=== PATIENT | female | born 1970 | race Hispanic/Latino ===

== ENCOUNTER 2023-12-22 14:37 | Inpatient (IN) | payer OTHER, SELFPAY ==
[2023-12-22] VITALS (13 sets, daily range): BP systolic 141–209; BP diastolic 68–113; BMI 22.3
--- NOTE | 2023-12-22 11:06 | ED.GENMED ---
History of Present Illness
<Anatsasiia Chavez PA-C - Last Filed: 12/22/23 16:07>
General
Chief Complaint: Blood Pressure Problem
Source: patient
Exam Limitations: none
Time Seen by Provider: 12/22/23 11:04
Nursing documentation reviewed up to this point in time: agreed with
History of Present Illness
History of Present Illness:
53-year-old female with past medical history of hypertension, chronic renal disease on dialysis, type 2 diabetes on insulin, presents to the emergency department today with concerns of high blood pressure, headache, and chest pain. Patient states
that she has a history of uncontrolled blood pressure and she states that she checks her blood pressure daily. Patient reports that her baseline blood pressure usually runs in the 150s to 160s systolically but noted that the past 3 days, her blood
pressure has been in the 200s systolically. Patient takes hydralazine, losartan, and nifedipine daily for her blood pressure. Of note, she was on labetalol previously instead of nifedipine however this was mold insert changer a year ago and she is not
sure why. Patient states that last night, she started to have chest pain and headache. Patient notes that her chest pain is substernal and describes it as pressure and feels like 'there is a rock in my chest' and has nausea and shortness of breath
associated with this as well as mild cough. Patient denies any trauma the chest wall. She denies radiation of the pain to the back. She denies any paresthesias. In terms of her headache,patient notes that her headache is frontal and denies any
changes to her vision. She receives dialysis Friday, Friday and Friday and notes that she did not go yet today for dialysis. Her toolroom machinist is Dr. Viera with [facility] and her gang rider is Dr. Palmer with [facility] cardiology.
Past History
<Anastasiia Chavez PA-C - Last Filed: 12/22/23 16:07>
Past History
ED Past Medical History: HTN, Hypercholesterolemia, IDDM, Renal failure (Chronic kidney disease stage III/IV.) and Other ( Frequent UTI's)
ED Past Surgical History: Other (History of right kidney transplant, Jaw tumor removed benign)
Social History
Tobacco: Non-smoker
Alcohol: None
Drug: None
Personal:
Living: with family
Employment: Not employed
Family History
Family History: Other (Noncontributory)
Review of Systems
<Anastasiia Chavez PA-C - Last Filed: 12/22/23 16:07>
Review of Systems
All Other Systems: ROS reviewed and negative except as documented in HPI and ROS
Phy Exam
<Anastasiia Chavez PA-C - Last Filed: 12/22/23 16:07>
Physical Exam
Physical Exam:
General: Patient is well appearing and in no acute distress; non-toxic
Skin: Warm and dry, no rashes or lesions
Head: Normocephalic, atraumatic
Eyes: Sclera non-icteric. EOMs intact. PERRLA.
Cardiac: Regular rate and rhythm, no murmurs
Peripheral Vascular: No lower extremity swelling or edema
Pulm: Normal respiratory effort, no wheezes, crackles, rhonchi
Abdomen: No abdominal tenderness to palpation
Neuro: CN II-XII intact, no focal neurologic deficits.
Psychiatric: Appropriate mood and affect.
Course
<Anastasiia Chavez PA-C - Last Filed: 12/22/23 16:07>
Orders/Labs/Results
Orders:
Orders
12/22/23 10:17
Electrocardiogram (*1) Urgent
Reason for Study: Hypertension, Benign
EKG- Treatment ONCE
12/22/23 11:14
Complete Blood Count/With Diff Urgent
Comprehensive Metabolic Panel Urgent
Troponin I Urgent
12/22/23 11:19
PTT Urgent
Prothrombin Time Urgent
Comment: ADD ON
12/22/23 11:40
CT Head W/o Iv Contrast Urgent
Comment:
Reason For Exam: headache
CR Chest - 2 Views Urgent
Comment:
Reason For Exam: chest pain, shortness of breath
12/22/23 11:44
Add On- LAB Urgent
Tests Added?: PT
Labetalol HCl [Trandate] 10 mg IV NOW STA
12/22/23 12:05
COVID-19 Antigen Urgent
Source: Nasal Swab
12/22/23 12:24
Ondansetron Injectable [Zofran] 4 mg IV NOW STA
12/22/23 13:12
Labetalol HCl [Trandate] 10 mg IV NOW STA
12/22/23 13:21
Sodium Zirconium Cyclosilicate [Lokelma] 5 gram PO NOW STA
12/22/23 13:40
Electrocardiogram (*1) Urgent
Reason for Study: Chest Pain
12/22/23 13:44
Troponin I Urgent
12/22/23 14:19
Admit/Transfer Patient As Directed
Co-Sign Provider:
Level of Care: Inpatient admission
Assign to:: Telemetry
Physician / Group: Lydia
Diagnosis: Uncontrolled Hypertension / Volume Overload
Reason for Telemetry: Arrhythmia
Date to Stop Telemetry: 12/25/23
Time to Stop Telemetry: 11:00
Reason for Hospitalization: BP management, volume management
Expected length of stay greater than two midnights?: Yes
ELOS- Estimated Length of Stay in days: 3
I certify the patient meets the requirements for IP care: Yes
PRN Pain Medication Management As Directed
May give lesser potent ordered pain med per pt: Yes
preference::
Protocol:: Medication orders for pain may be administered in a
manner that supports deferring to patient preference
when the pt is:
- Requesting an ordered lesser potent pain medication.
Least to most potent pain medications are defined
as: acetaminophen < NSAID < tramadol < opioids
(morphine, oxycodone, hydromorphone).
- Requesting a lesser dose of the same medication IF
ORDERED.
- Requesting a less intrusive route of administration
if both routes are prescribed by the provider (PO <
IV).
12/22/23 14:25
Code Status As Directed
Resuscitation Status: Full Code
12/22/23 20:00
Troponin I Routine
12/25/23 11:00
DC Protocol for Telemetry ONCE
Abnormal Lab Results
12/22/23 12/22/23
11:14 11:19
MCH 26.0 L pg
(27.0-31.0)
MCHC 32.1 L g/dL
(33.0-37.0)
RDW 16.4 H %
(11.5-14.5)
Absolute Lymphs (auto) 1.0 L 10^3/uL
(1.2-3.4)
Neutrophils % 79.2 H %
(42.2-75.2)
Lymphocytes % 12.3 L %
(20.5-51.1)
PT 23.7 H Sec
(11.4-14.6)
APTT 35.5 H Sec
(23.4-35.0)
Potassium 5.6 H mmol/L
(3.5-5.1)
Chloride 93 L mmol/L
(98-107)
BUN 98 H mg/dl
(7-17)
Creatinine 11.0 H* mg/dL
(0.6-1.0)
Glucose 109 H mg/dl
(70-99)
Alkaline Phosphatase 244 H U/L
(38-126)
12/22/23 11:14
12/22/23 11:14
Vital Signs
Initial and Last Documented VS:
Initial Vital Signs
Temp Pulse Resp BP Pulse Ox
98.1 F 69 16 205/113 99
12/22/23 10:34 12/22/23 10:34 12/22/23 10:34 12/22/23 10:34 12/22/23 10:34
Last Documented Vital Signs
Temp Pulse Resp BP Pulse Ox
98.1 F 87 20 183/83 100
12/22/23 10:34 12/22/23 14:00 12/22/23 14:00 12/22/23 14:00 12/22/23 14:00
<Ansley Fish MD - Last Filed: 12/22/23 14:09>
Orders/Labs/Results
Orders:
Orders
12/22/23 10:17
Electrocardiogram (*1) Urgent
Reason for Study: Hypertension, Benign
EKG- Treatment ONCE
12/22/23 11:14
Complete Blood Count/With Diff Urgent
Comprehensive Metabolic Panel Urgent
Troponin I Urgent
12/22/23 11:19
PTT Urgent
Prothrombin Time Urgent
Comment: ADD ON
12/22/23 11:40
CT Head W/o Iv Contrast Urgent
Comment:
Reason For Exam: headache
CR Chest - 2 Views Urgent
Comment:
Reason For Exam: chest pain, shortness of breath
12/22/23 11:44
Add On- LAB Urgent
Tests Added?: PT
Labetalol HCl [Trandate] 10 mg IV NOW STA
12/22/23 12:05
COVID-19 Antigen Urgent
Source: Nasal Swab
12/22/23 12:24
Ondansetron Injectable [Zofran] 4 mg IV NOW STA
12/22/23 13:12
Labetalol HCl [Trandate] 10 mg IV NOW STA
12/22/23 13:21
Sodium Zirconium Cyclosilicate [Lokelma] 5 gram PO NOW STA
12/22/23 13:40
Electrocardiogram (*1) Urgent
Reason for Study: Chest Pain
12/22/23 13:44
Troponin I Urgent
12/22/23 14:19
Admit/Transfer Patient As Directed
Co-Sign Provider:
Level of Care: Inpatient admission
Assign to:: Telemetry
Physician / Group: Lydia
Diagnosis: Uncontrolled Hypertension / Volume Overload
Reason for Telemetry: Arrhythmia
Date to Stop Telemetry: 12/25/23
Time to Stop Telemetry: 11:00
Reason for Hospitalization: BP management, volume management
Expected length of stay greater than two midnights?: Yes
ELOS- Estimated Length of Stay in days: 3
I certify the patient meets the requirements for IP care: Yes
PRN Pain Medication Management As Directed
May give lesser potent ordered pain med per pt: Yes
preference::
Protocol:: Medication orders for pain may be administered in a
manner that supports deferring to patient preference
when the pt is:
- Requesting an ordered lesser potent pain medication.
Least to most potent pain medications are defined
as: acetaminophen < NSAID < tramadol < opioids
(morphine, oxycodone, hydromorphone).
- Requesting a lesser dose of the same medication IF
ORDERED.
- Requesting a less intrusive route of administration
if both routes are prescribed by the provider (PO <
IV).
12/22/23 14:25
Code Status As Directed
Resuscitation Status: Full Code
12/22/23 20:00
Troponin I Routine
12/25/23 11:00
DC Protocol for Telemetry ONCE
Abnormal Lab Results
12/22/23 12/22/23
11:14 11:19
MCH 26.0 L pg
(27.0-31.0)
MCHC 32.1 L g/dL
(33.0-37.0)
RDW 16.4 H %
(11.5-14.5)
Absolute Lymphs (auto) 1.0 L 10^3/uL
(1.2-3.4)
Neutrophils % 79.2 H %
(42.2-75.2)
Lymphocytes % 12.3 L %
(20.5-51.1)
PT 23.7 H Sec
(11.4-14.6)
APTT 35.5 H Sec
(23.4-35.0)
Potassium 5.6 H mmol/L
(3.5-5.1)
Chloride 93 L mmol/L
(98-107)
BUN 98 H mg/dl
(7-17)
Creatinine 11.0 H* mg/dL
(0.6-1.0)
Glucose 109 H mg/dl
(70-99)
Alkaline Phosphatase 244 H U/L
(38-126)
12/22/23 11:14
12/22/23 11:14
Vital Signs
Initial and Last Documented VS:
Initial Vital Signs
Temp Pulse Resp BP Pulse Ox
98.1 F 69 16 205/113 99
12/22/23 10:34 12/22/23 10:34 12/22/23 10:34 12/22/23 10:34 12/22/23 10:34
Last Documented Vital Signs
Temp Pulse Resp BP Pulse Ox
98.1 F 87 20 183/83 100
12/22/23 10:34 12/22/23 14:00 12/22/23 14:00 12/22/23 14:00 12/22/23 14:00
<Anastasiia Chavez PA-C - Last Filed: 12/22/23 16:07>
MDM/Problems Addressed
Differential Diagnosis Includes:
ddx include ACS, aortic dissection, pericarditis, myocarditis, intraparenchymal hemorrhage, tension headache, pleural effusion, CKD progression
MDM/Problems Addressed:
53-year-old female history of hypertension, A-fib on warfarin, chronic renal disease hemodialysis MWF, diabetes presents to the emergency department today with concerns of high blood pressure for the past few days as well as headache, shortness of
breath, and chest pain that started last night. Patient describes her headache as frontal and is associated with nausea. Patient describes her chest pain as substernal and states that she feels like there is a 'rock in her chest.' Her BP upon
presentation to the ED is 205/113. Patient states that she is compliant with her blood pressure medications and denies any recent changes to her medications. Patient did take her blood pressure medications yesterday. Possible differentials
include ACS, CKD progression, CHF, doubt aortic dissection/PE. Patient was given 2 doses of labetalol here in the emergency department. Her high blood pressure persist. CT of the head negative for any bleed. Her chest x-ray shows a component of
pulmonary edema. Will admit to hospitalist for further workup and evaluation and management of her hypertensive urgency.
Chronic conditions affecting care:
CKD on dialysis, HTN, diabetes on insulin
<Anastasiia Chavez PA-C - Last Filed: 12/22/23 16:07>
*Pulse Oximetry
Patient hypoxic: no
*Manager Actuarial Interpretation
Rate: normal
Interpretation: normal
Heart Rate: 77
Rhythm: sinus
*Critical Care Note
Total Time (30-74mins, 75-104mins- exclusive of procedures): Not Applicable
Data Reviewed
Review of Other/Old Records Reveals: Records (Reviewed discharge summary from 01/30/2023, patient was seen for chest pain and hypertension, she was found to have a pericardial effusion and was found to have possible pericarditis versus uncontrolled
hypertension)
<Anastasiia Chavez PA-C - Last Filed: 12/22/23 16:07>
Update Note
Update Note:
12:30 pm-- Patient was given labetalol 10 mg latest BP reading 183/84
12:47 pm-- Patient's toolroom machinist is on vacation. I was given number for patient's nephrology GENERAL WORK[employer], left message, will attempt recalling
13:30 pm-- CXR shows pulmonary edema, will admit for management of hypertensive urgency, hospitalist made aware
ED Attending Note
<Anastasiia Chavez PA-C - Last Filed: 12/22/23 16:07>
-
Portions of this chart may have been created with voice recognition software.� Occasional wrong word or��sound alike� substitutions may have occurred due to the inherent limitations of voice recognition software.
<Ansley Fish MD - Last Filed: 12/22/23 14:09>
ED Attending Note
Patient seen and examined by attending physician: Yes
I performed the substantive portion of visit, reviewed & personally made and approve the management plan that is documented in note by myself or CLARISA.: Yes
ED Attending Note:
53 yr old female presents with elevated bp for last 3 days (measures regularly, has been well controlled until 3 day agos), no change to meds, assoc with cp and sob. THe cp and sob are vague sxs...intermittent, not positional, ?sl worse with
exertion. No radiation of chest 'pressure', central, not pleuritic, no leg swelling, no orthopnea/pnd/cough/st/rhinorrhea/fever. Pain was much worse at approx 3am todya which prompted visit here. On exam, sl rhocnhi noted at bases bilat,
otherwise unremkarable, well appearing. Bp noted to be markedly elevated, cp continues. ecg and trop wnl. repeat dose of htn med to gradually address htn urgency here, CXR with mild failure. Did miss HD today. No hypoxia/resp distress etc to
suggest need for urgent HD now. Will admit for continuied bp managmeent, hd, hyper K treatment, cp r/o.
Discharge Plan
Departure
Patient Disposition: Admit
Date of Disposition: 12/22/23
Time of Disposition: 13:29
Admit to: Telemetry
Presentation/result/management discussed w/ accepting MD/DO: Hospitalist
Condition: Fair
Discharge Problem:
Hypertensive urgency
Interventions
Interventions:
*Risk Screen - Suicide Last Done: 12/22/23 10:34
*General Assessment Last Done: 12/22/23 11:22
*Neglect/Abuse Screening Last Done: 12/22/23 11:22
ED- Cardiac Assessment Last Done: 12/22/23 11:22
ED- Neurological Assessment Last Done: 12/22/23 11:22
ED- Pulmonary Assessment Last Done: 12/22/23 11:22
[2023-12-22 11:25] LABS: % Basophils 0.5 % (0-2); % Eosinophils 2.2 % (0-6); % Immature Granulocytes 0.4 % (0-0.5); % Lymphocytes 12.3 % (20.5-51.1); % Monocytes 5.4 % (1.7-9.3); % Neutrophils 79.2 % (42.2-75.2); Absolute Eosinophils 0.2 10^3/uL (0-0.7); Absolute Monocytes 0.4 10^3/uL (0.1-0.6); Absolute Neutrophils 6.1 10^3/uL (1.4-6.5); Hematocrit 40.5 % (37.0-47.0); Mean Corp Hgb Conc. 32.1 g/dL (33.0-37.0); Mean Platelet Volume 8.6 fL (7.4-10.4); Nucleated Red Blood Cells % 0 %; Platelet Count 181 10^3/uL (130-400); Red Cell Dist. Width 16.4 % (11.5-14.5); White Blood Cell Count 7.7 10^3/uL (4.8-10.8)
[2023-12-22 11:36] LABS: APTT 35.5 Sec (23.4-35.0)
[2023-12-22 11:50] LABS: Troponin I < 0.012 ng/ml
[2023-12-22 11:53] LABS: ALT (SGPT) 23 U/L (0-35); AST (SGOT) 35 U/L (14-36); Albumin 4.8 g/dl (3.5-5.0); Alkaline Phosphatase 244 U/L (38-126); Blood Urea Nitrogen 98 mg/dl (7-17); Calcium 9.1 mg/dl (8.4-10.2); Carbon Dioxide 22 mmol/L (22-30); Chloride 93 mmol/L (98-107); Glucose 109 mg/dl (70-99); Potassium 5.6 mmol/L (3.5-5.1); Sodium 136 mmol/L (135-145); Total Bilirubin 0.9 mg/dl (0.2-1.3); Total Protein 7.3 g/dl (6.3-8.2); eGFR 3.84
[2023-12-22 11:56] LABS: INR 2.13; PT 23.7 Sec (11.4-14.6)
[2023-12-22] MEDS: TRANDATE 10 MG IV ×2 (12:06→13:36)
[2023-12-22 12:40] LABS: COVID-19 Antigen Negative (Negative)
[2023-12-22] MEDS: ZOFRAN 4 MG IV (13:01)
[2023-12-22] MEDS: LOKELMA 5 GRAM PO (13:36)
[2023-12-22 14:13] LABS: Troponin I 0.018 ng/ml
--- NOTE | 2023-12-22 14:28 | HPS.HSE ---
Family Physician
-
Family Physician: Robby Keene
Chief Complaint
-
Chest Pain
History of Present Illness
Patient is a 53-year-old female past medical history ESRD on hemodialysis, hypertension, hyperlipidemia, diabetes and paroxysmal atrial fibrillation who presents with chest pain, shortness of breath and elevated blood pressure. Patient reports her
blood pressure has been running high over the last week. She notes initially started with systolic blood pressures in the 150s. She notes over the last 3 days systolic blood pressure was in the 180s. Overnight she developed chest pain, shortness
of breath and significant headache which was associated with systolic blood pressure greater than 200, which prompted her to come to the emergency department evaluation this morning. She notes they have been taking less fluid off during her
dialysis due to muscle cramping. While in the emergency department she received 2 doses of labetalol with improvement in her blood pressure from systolic 205 down to 183, which was associated with improvement in her headache and chest pain.
Medical History
Past Medical History
Past Medical History: Reports Other
Additional Past Medical History:
ESRD with Failed Kidney Transplant on Hemodialysis
Hyperphosphatemia
Essential Hypertension
Hyperlipidemia
Insulin-Dependent Diabetes Mellitus
Paroxysmal Atrial Fibrillation
GERD
Past Surgical History: Reports Other
Additional Past Surgical History:
Right Kidney Transplant
Jaw Tumor Removal
Social History
Tobacco: Non-smoker
Alcohol: None
Drug: None
Family History
Family History: Not pertinent
Allergies / Home Medications
Allergies reflects when Allergies were last updated in [facility] [employer].
Home Medications with original date entered in [facility] [employer]
Allergy/Medication List:
Allergies
Allergy/AdvReac Type Severity Reaction Status Date / Time
No Known Allergies Allergy Verified 12/22/23 10:39
Home Medications
nifedipine 60 mg tablet,extended release 60 mg PO BID Blood Pressure 07/22/19
tacrolimus 1 mg capsule, immediate-release 1 mg PO BID Transplant 07/22/19
simvastatin 10 mg tablet 10 mg PO HS High Cholesterol 07/24/21
calcitriol 0.25 mcg capsule 0.25 mcg PO MOWEFR Kidney Disease 10/03/22
dicyclomine 10 mg capsule 10 mg PO TIDPRN PRN gi issue 10/03/22
insulin aspart U-100 100 unit/mL subcutaneous solution (Novolog U-100 Insulin aspart) 1 sliding scale dose SC DIRECTED #10 mL 01/30/23
acetaminophen 500 mg tablet (Tylenol Extra Strength) 1,000 mg PO Q6HPRN PRN mild pain 12/22/23
carvedilol 25 mg tablet 25 mg PO BID 12/22/23
famotidine 20 mg tablet 20 mg PO DAILY 12/22/23
hydralazine 25 mg tablet 25 mg PO TID 12/22/23
insulin glargine 100 unit/mL (3 mL) subcutaneous pen (Basaglar KwikPen U-100 Insulin) 4-6 units SC HS Diabetes 12/22/23
losartan 100 mg tablet 100 mg PO HS 12/22/23
sevelamer carbonate 800 mg tablet 2,400 mg PO BID 12/22/23
sevelamer carbonate 800 mg tablet 800 mg PO NOON 12/22/23
sodium zirconium cyclosilicate 10 gram oral powder packet (Lokelma) 10 g PO TUTA 12/22/23
tenapanor 30 mg tablet (Xphozah) 30 mg PO TUTHSA 12/22/23
warfarin 2.5 mg tablet 5 mg PO SUMOTUWETHSA 12/22/23
warfarin 2.5 mg tablet 6.25 mg PO FR 12/22/23
Review of Systems
-
A 12 point ROS was completed and negative except as noted: Yes
Constitutional: Denies Fever or Chills
Respiratory: Reports Trouble Breathing; Denies Cough
Cardiac: Reports Chest Pain; Denies Palpitations or Syncope
Neurological: Reports Headache; Denies Dizzy
Physical Exam
Vital Signs
Vital Signs
Temp Pulse Resp BP Pulse Ox
98.1 F 68 14 182/84 92
12/22/23 10:34 12/22/23 12:28 12/22/23 12:28 12/22/23 12:28 12/22/23 12:00
Physical Exam
General: Comfortable and Conversant
HEENT: Anicteric and Moist mucous membranes
Respiratory: Clear and Non Labored Respirations
Cardiac: S1/S2 and Regular Rhythm
GI: Soft and Non Tender
Rectal: Deferred by Provider
Musculoskeletal: No Clubbing, No Cyanosis and No Edema
Skin: Warm and Dry
Neuro: Awake, Alert, Oriented and Nonfocal/grossly intact
Psych: Calm
Laboratory Results
-
12/22/23 11:14
12/22/23 11:14
Laboratory Results
PT Cancelled 12/22/23 11:40
INR Cancelled 12/22/23 11:40
APTT 35.5 Sec (23.4-35.0) H 12/22/23 11:19
Total Bilirubin 0.9 mg/dl (0.2-1.3) 12/22/23 11:14
AST 35 U/L (14-36) 12/22/23 11:14
ALT 23 U/L (0-35) 12/22/23 11:14
Alkaline Phosphatase 244 U/L (38-126) H 12/22/23 11:14
Troponin I 0.018 ng/ml D 12/22/23 13:44
Chest X-Ray:
Diffusely increased interstitial opacities suggestive of interstitial edema. There are some patchy bibasilar opacities, possibly related to the same process. Questionable trace pleural effusions.
Head CT:
No acute intracranial abnormality.
Data Reviewed
-
Diagnostic Radiology: Report Reviewed by me
CT Scan: Report Reviewed by me
Lab Data: Labs Reviewed by me
Impression/Plan
-
Uncontrolled Hypertension secondary to Volume Overload
-Consult Nephrology
-Would plan to manage volume with dialysis
-If unable to arrange for dialysis this evening will give dose of Lasix
-Continue home blood pressure regimen with carvedilol, hydralazine, losartan, and nifedipine
-Continue labetalol prn blood pressure >180/95
ESRD with Failed Kidney Transplant on HD MoWeFr
-Continue low sodium, and low potassium diet
-Continue fluid restriction
-Monitor Is&Os and Daily Weights
Hyperphosphatemia
-Continue sevelamer and tenapanor as prior to admission
Insulin-Dependent Diabetes Mellitus
-Continue Basaglar
-Monitor sugars and continue coverage insulin
Paroxysmal Atrial Fibrillation
-Continue Coumadin for anticoagulation
-Monitor heart rate
DVT proph: Coumadin
Code Status: Full Code
--- NOTE | 2023-12-22 14:40 | W.PN.UPDATE ---
Update Note
Progress Note Update
This is an addendum to the H&P written by Leyla Culp 12/22/2023.� Patient seen and examined independently with PA.
53-year-old female past medical history of ESRD on hemodialysis Friday, Friday, Friday, paroxysmal atrial fibrillation on Eliquis, hypertension, diabetes here with progressive hypotension with associated chest discomfort, shortness of breath and
headache over the past few days.� Recently nephrology has been taking less fluid off at dialysis due to leg cramping.
Blood pressure as high as 205/113 here.� She was given IV labetalol twice with improvement in blood pressure to 182/84 at this time and significant improvement in symptoms.� Troponin of 0.018.� Chest x-ray shows diffusely increased interstitial
opacities suggestive of interstitial edema.� CT head negative for acute abnormality.
Uncontrolled hypertension secondary to inadequate dialysis.� Nephrology consulted for dialysis which she is due for today.� Continue as needed labetalol.
--- NOTE | 2023-12-22 15:38 | W.CON.NEPH ---
Consultation
-
Date/Time Consultation Requested: 12/22/23 1445
Date/Time Consultation Performed: 12/22/23 1450
Requesting Provider: Jaclyn Spain
Performing Provider: Yun Sahu
Reason for Consultation: ESRD
Medical History
-
Chief Complaint: CP with high BPs
History of Present Illness:
This is a 52-year-old female who has history of ESRD, failed kidney transplant in 2019, prior history of ESRD from hypertension and diabetes, was on PD for two years switched HD in Feb 2023 at [facility] through tunneled HD catheter at
[place] and remains still on low dose of Prograf, insulin-dependent diabetes mellitus, secondary hyperparathyroidism on calcitriol, hypertension on losartan, nifedipine, coreg, hydralazine, hyperphosphatemia on Xphozah and sevelamer, Afib on
coumadin, hr hyperkalemia on Lokelma who was brought into the hospital today with chest pressure and high SBP 200 at home. She missed HD today since came to ER. Patient reports her blood pressure has been running high over the last week. She notes
initially started with systolic blood pressures in the 150s. She notes over the last 3 days systolic blood pressure was in the 180s. Overnight she developed chest pain, shortness of breath and significant headache which was associated with
systolic blood pressure greater than 200, which prompted her to come to the emergency department evaluation this morning. She does not know how much UF she gets usually. Unclear if she compliant with FR. She notes they have been taking less fluid
off during her dialysis due to muscle cramping. While in the emergency department she received 2 doses of labetalol with improvement in her blood pressure from systolic 205 down to 166, which was associated with improvement in her headache and
chest pain. CXR shows mild edema, CT head is negative. No n/v or fever. Loose BM today. No abd pain. SHe still had PD catheter, due to her AC she is unable to get it removed and have AVF placement yet. Daughter helped with translation. Family notes
that she has pericarditis and requiring removal of pericardial sac at [place] with in last 1yr.
Past Medical History
ESRD with Failed Kidney Transplant on Hemodialysis
Hyperphosphatemia
Essential Hypertension on multiple meds
Hyperlipidemia
Insulin-Dependent Diabetes Mellitus
Paroxysmal Atrial Fibrillation
GERD
right chest wall tunneled HD catheter
Chr hyperkalemia
Past Surgical History: Other (1. Kidney transplant and placement of dialysis catheter. 2. 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 PD catheter)
Social History
Tobacco: Non-Smoker
Alcohol: None
Living: With Family
Family History
No history of kidney disease in the family.
Allergies / Home Medications
Allergy/AdvReac Type Severity Reaction Status Date / Time
No Known Allergies Allergy Verified 12/22/23 10:39
�Medication �Instructions �Recorded �Confirmed �Type
nifedipine 60 mg tablet,extended 60 mg PO BID Blood Pressure 07/22/19 12/22/23 History
release
tacrolimus 1 mg capsule, 1 mg PO BID Transplant 07/22/19 12/22/23 History
immediate-release
simvastatin 10 mg tablet 10 mg PO HS High Cholesterol 07/24/21 12/22/23 History
calcitriol 0.25 mcg capsule 0.25 mcg PO MOWEFR Kidney Disease 10/03/22 01/28/23 History
dicyclomine 10 mg capsule 10 mg PO TIDPRN PRN gi issue 10/03/22 12/22/23 History
insulin aspart U-100 100 unit/mL 1 sliding scale dose SC 01/30/23 12/22/23 Rx
subcutaneous solution (Novolog DIRECTED #10 mL
U-100 Insulin aspart)
acetaminophen 500 mg tablet 1,000 mg PO Q6HPRN PRN mild pain 12/22/23 12/22/23 History
(Tylenol Extra Strength)
carvedilol 25 mg tablet 25 mg PO BID 12/22/23 12/22/23 History
famotidine 20 mg tablet 20 mg PO DAILY 12/22/23 12/22/23 History
hydralazine 25 mg tablet 25 mg PO TID 12/22/23 12/22/23 History
insulin glargine 100 unit/mL (3 0 unit SC HS Diabetes 12/22/23 12/22/23 History
mL) subcutaneous pen (Basaglar
KwikPen U-100 Insulin)
losartan 100 mg tablet 100 mg PO HS 12/22/23 12/22/23 History
sevelamer carbonate 800 mg tablet 2,400 mg PO BID 12/22/23 12/22/23 History
sevelamer carbonate 800 mg tablet 800 mg PO NOON 12/22/23 12/22/23 History
sodium zirconium cyclosilicate 10 10 g PO TUTHSA 12/22/23 12/22/23 History
gram oral powder packet (Lokelma)
tenapanor 30 mg tablet (Xphozah) 30 mg PO TUTHSA 12/22/23 12/22/23 History
warfarin 2.5 mg tablet 5 mg PO SUMOTUWETHSA 12/22/23 12/22/23 History
warfarin 2.5 mg tablet 6.25 mg PO FR 12/22/23 12/22/23 History
Review of Systems
-
All complete 12 point ROS have been inquired and found negative other than stated in HPI
All other systems: Negative unless noted
Physical Exam
Vital Signs
Vital Signs
Temp Pulse Resp BP Pulse Ox
98.1 F 87 20 183/83 100
12/22/23 10:34 12/22/23 14:00 12/22/23 14:00 12/22/23 14:00 12/22/23 14:00
Lab Results
WBC 7.7 10^3/uL (4.8-10.8) 12/22/23 11:14
RBC 5.00 10^6/uL (4.20-5.40) 12/22/23 11:14
Hgb 13.0 g/dL (12.0-16.0) 12/22/23 11:14
Hct 40.5 % (37.0-47.0) 12/22/23 11:14
Plt Count 181 10^3/uL (130-400) 12/22/23 11:14
Sodium 136 mmol/L (135-145) 12/22/23 11:14
Potassium 5.6 mmol/L (3.5-5.1) H 12/22/23 11:14
Chloride 93 mmol/L (98-107) L 12/22/23 11:14
Carbon Dioxide 22 mmol/L (22-30) 12/22/23 11:14
BUN 98 mg/dl (7-17) H 12/22/23 11:14
Creatinine 11.0 mg/dL (0.6-1.0) H* 12/22/23 11:14
eGFR 3.84 12/22/23 11:14
Glucose 109 mg/dl (70-99) H 12/22/23 11:14
Calcium 9.1 mg/dl (8.4-10.2) 12/22/23 11:14
Albumin 4.8 g/dl (3.5-5.0) 12/22/23 11:14
CT head:
IMPRESSION:
No acute intracranial abnormality.
CXR:
IMPRESSION:
Diffusely increased interstitial opacities suggestive of interstitial edema. There are some patchy bibasilar opacities, possibly related to the same process. Questionable trace pleural effusions.
Physical Exam
General: Awake, Alert, Oriented, AOx3, No Distress and Nontoxic
HEENT: EOMI, Anicteric, Conjunctivae Clear and Neck Supple
Respiratory: Clear, Normal Excursion and Nonlabored Respirations
Cardiac: S1/S2 and Regular Rate/Rhythm
Breast: Deferred by me
Abdomen: Soft, Nontender and Nondistended
Musculoskeletal: No Cyanosis and No Edema
Skin: No Rash
Neuro: Nonfocal/Grossly Intact
Psych: Mood/afflect pleasant and Appropriate
Vascular Access: CVC and Other (PD catheter still present)
Data Reviewed
-
Radiology: Report Reviewed by me and Discussed with Patient
Labs: Labs Reviewed by me, Discussed with Patient and Discussed with Family
Assessment/Plan
-
IMP:
Uncontrolled Hypertension secondary to Volume Overload
ESRD with Failed Kidney Transplant on Hemodialysis MWF at [facility]
Essential Hypertension on multiple meds
Hyperlipidemia
Insulin-Dependent Diabetes Mellitus
Paroxysmal Atrial Fibrillation
GERD
right chest wall tunneled HD catheter
Hyperphosphatemia
SHPTH
Chr hyperkalemia on Lokelma
h/o Pericarditis
Plan:
A/w CP and htn , CXR vol overload, trop neg
will arrange HD today and UF as tolerates
if needed extra UF tomorrow
resume all anti HTN meds
strict renal diet and FR 33 ounces/day
resume phos binders , Lokelma
cont Tac
d/w pt and daughter at bedside
[2023-12-22 16:49] LABS: Glucose - Point of Care 139 mg/dl (70-99)
[2023-12-22] MEDS: TYLENOL 1000 MG PO (17:21)
[2023-12-22] MEDS: RENVELA 2400 MG PO (17:21)
--- NOTE | 2023-12-22 17:40 | W.PN.NEPH.HD ---
Assessment
-
pt seen during H D
vitals stable, SBP 181
UF as tolerates
CVC functions fine
may need extra UF tomorrow , eval in am
Progress Note - Hemodialysis
-
Date of Service: December 22, 2023
Duration: 30 minutes and 3 hours
Potassium Bath: 2
Calcium Bath: 2.5
Opti-Dialyzer: 160
Ultrafiltration: Other (2.5-3kg)
Blood Flow: 400
Dialysate Flow: 600
Heparin: no
EPO: no
[2023-12-22] MEDS: PROCARDIA XL (EXTENDED RELEASE) 60 MG PO (20:11)
[2023-12-22] MEDS: COREG 25 MG PO (20:11)
[2023-12-22] MEDS: COUMADIN 5 MG PO (20:12)
[2023-12-22] MEDS: PROGRAF 1 MG PO (20:12)
[2023-12-22] MEDS: APRESOLINE PO (20:19)
[2023-12-22] MEDS: HEPARIN 3900 UNITS INTRACATH (20:58)
[2023-12-22] MEDS: APRESOLINE 25 MG PO (21:20)
[2023-12-22] MEDS: COZAAR 100 MG PO (21:20)
[2023-12-22] MEDS: LIPITOR 10 MG PO (21:20)
[2023-12-22 21:36] LABS: Troponin I 0.027 ng/ml
--- NOTE | 2023-12-22 22:02 | PTCARENOTE ---
Patient expressed concern about plan of care. She stated that she would like to leave to see her PCP in the morning and that she is feeling stressed about her elevated blood pressures. RN reviewed plan of care and medications with patient. Patient
agreeable to staying overnight. orthopedically impaired teacher DIRECTOR [employer]ILL[employer] Brittny made aware of situation. Patient and family provided an opportunity to ask questions. Last BP at 2145 from dialysis nurse was 167/92 HR 73.
[2023-12-22 22:16] LABS: Glucose - Point of Care 118 mg/dl (70-99)
[2023-12-22] MEDS: LANTUS 0.04 UNITS SC (22:20)
[2023-12-22] MEDS: ATARAX 25 MG PO (22:46)
[2023-12-23 03:35] VITALS: BP 151/79
[2023-12-23 08:02] VITALS: BP 177/95
[2023-12-23 08:18] LABS: Mean Corp Hgb Conc. 32.4 g/dL (33.0-37.0); Mean Corpuscular Hgb 25.3 pg (27.0-31.0); Mean Corpuscular Volume 78.1 fL (81.0-99.0); Mean Platelet Volume 8.6 fL (7.4-10.4); Platelet Count 161 10^3/uL (130-400); Red Blood Cell Count 4.74 10^6/uL (4.20-5.40); Red Cell Dist. Width 16.1 % (11.5-14.5); White Blood Cell Count 5.4 10^3/uL (4.8-10.8)
[2023-12-23 08:19] LABS: Glucose - Point of Care 116 mg/dl (70-99)
[2023-12-23 08:21] LABS: INR 2.15; PT 23.9 Sec (11.4-14.6)
[2023-12-23] MEDS: LOKELMA 10 GRAM PO (08:32)
[2023-12-23] MEDS: RENVELA 2400 MG PO (08:33)
[2023-12-23] MEDS: PROCARDIA XL (EXTENDED RELEASE) 60 MG PO (08:33)
[2023-12-23] MEDS: APRESOLINE 25 MG PO (08:34)
[2023-12-23] MEDS: PROGRAF 1 MG PO (08:34)
[2023-12-23] MEDS: COREG 25 MG PO (08:34)
[2023-12-23 09:13] LABS: Blood Urea Nitrogen 48 mg/dl (7-17); Carbon Dioxide 27 mmol/L (22-30); Chloride 92 mmol/L (98-107); Estimated Creatinine Clearance 9 ml/min; Glucose 107 mg/dl (70-99); Magnesium 2.8 mg/dl (1.6-2.3); Phosphorus 4.8 mg/dl (2.5-4.5); Sodium 136 mmol/L (135-145); eGFR 6.96
[2023-12-23 09:34] LABS: Glycohemoglobin (HgbA1c) 5.2 % (4.0-5.6)
[2023-12-23 09:43] LABS: TSH Reflex To Free T4 0.68 uIU/ml (0.47-4.68)
[2023-12-23 11:00] VITALS: BP 139/70
--- NOTE | 2023-12-23 11:25 | W.PN.HOSP.TC ---
Addendum entered and electronically signed by Santi Fragoso MD 12/23/23 12:14:
Repeat blood pressure 139/70.
Discussed with nephrology no plan for repeat ultrafiltration or hemodialysis. Okay for discharge.
More than 30 minutes spent in discharge including
Final examination of the patient
Summarizing hospital stay
Instructions for continuing care to all relevant caregivers
Preparation of discharge records, prescriptions, and referral forms
Total time spent (in minutes): 52
Original Note:
Today's Communication/Plan
-
nephro rec
monitor BP
daily inr
Assessment / Plan
Assessment / Plan
Uncontrolled Hypertension secondary to Volume Overload
-Consult Nephrology
-Would plan to manage volume with dialysis
-Continue home blood pressure regimen with carvedilol, hydralazine, losartan, and nifedipine
-can increase dose of hydralazine if needed
-Reassess BP after AM meds. Symptoms improve post HD.
ESRD with Failed Kidney Transplant on HD MoWeFr
-Continue low sodium, and low potassium diet
-Continue fluid restriction
-Monitor Is&Os and Daily Weights
-Per daughter, pt is on back on transplant list at [place]
-Nephro following-awaiting further recs if plan for repeat UF/HD today?
Hyperphosphatemia
-Continue sevelamer and tenapanor as prior to admission
Insulin-Dependent Diabetes Mellitus
-Continue Basaglar
-Monitor sugars and continue coverage insulin. POC 116
Paroxysmal Atrial Fibrillation
-Continue Coumadin for anticoagulation
-INR therapeutic at 2.15
-Monitor heart rate
DVT proph: Coumadin
Code Status: Full Code
d/w with daughter at bedside in details
Anticipated Discharge: Within 24 hours
Subjective/Interval History
-
Date of Service: December 23, 2023
Denies chest pain or sob
denies headache this morning
Objective Data
-
Labs:
Laboratory Results
12/23/23 12/23/23
07:03 07:04
WBC 5.4
Hgb 12.0
Hct 37.0
Plt Count 161
PT 23.9 H
INR 2.15
Sodium 136
Potassium 4.0 D
Chloride 92 L
Carbon Dioxide 27
BUN 48 H
Creatinine 6.7 H*
Glucose 107 H
Calcium 9.0
Vital Signs:
Vital Signs
Temp Pulse Resp BP Pulse Ox
98.9 F 69 18 177/95 100
12/23/23 08:02 12/23/23 08:02 12/23/23 08:02 12/23/23 08:02 12/23/23 08:02
Physical Exam
-
General: Well Developed, Well Nourished and No Apparent Distress
HEENT: Normocephalic, Atraumatic and Moist Mucous Membranes
Respiratory: Clear to Auscultation and Other (R chest wall HD catheter noted )
Cardiac: Regular Rhythm and S1/S2
GI: Soft, Nontender, Nondistended and Normal Bowel Sounds
Neuro: Awake, Alert, Oriented and AO x 3
Psych: Calm
Data Reviewed
-
Total Time Spent with Patient (in minutes): 50
[2023-12-23 11:56] LABS: Glucose - Point of Care 144 mg/dl (70-99)
[2023-12-23] MEDS: RENVELA 800 MG PO (12:05)
--- NOTE | 2023-12-23 12:14 | W.DCSUMMARY ---
Discharge Summary
Discharge Data
Date of Admission: 12/22/23
Date of Discharge: 12/23/23
-
Pending Results: No
Hospital Course
53-year-old female past medical history of ESRD status post failed kidney transplant now on hemodialysis, primary hypertension, insulin-dependent diabetes mellitus, atrial fibrillation, chronic coagulopathy with Coumadin who was presented with a
significantly elevated blood pressure at home. Patient was complaining of headache. Patient was eval by nephrology and patient underwent emergent hemodialysis. Patient blood pressure improved overnight. Patient was continued on her home regimen
blood pressure medication. Patient symptomology resolved. Patient blood pressure significantly improved prior to discharge to 139/70. Discussed with nephrology no plan for repeat hemodialysis and patient can be discharged home. Patient will
continue follow-up with outpatient primary collar closer lockstitch Torres and will undergo regular scheduled hemodialysis on 12/24/2023. Patient did not want any further changes to her blood pressure medication to be made and states she will discuss this
with her outpatient collar closer lockstitch vivian upon discharge. Discharge plan was discussed with patient and patient daughter at bedside were both agreeable to discharge home.
Discharge Plan
-
Patient Disposition: Home (Routine Discharge)
Discharge Diagnosis/Procedures: Uncontrolled hypertension secondary to volume overload
ESRD status post hemodialysis
Condition: Fair
Diet: 2 Gram Sodium and Restrict fluids to 48 oz
Activity: With assistance and As tolerated
Driving Restrictions: As prior to admission
Activity Restrictions/Additional Instructions:
Follow-up with your primary collar closer lockstitch.
Referrals:
Robby Keene MD [Family Provider] - in less than 1 week
Prescriptions:
Continued
nifedipine 60 MG tablet extended release
60 mg PO BID
tacrolimus 1 MG capsule
1 mg PO BID
simvastatin 10 MG tablet
10 mg PO HS
dicyclomine 10 mg Capsule
10 mg PO TIDPRN PRN (Reason: gi issue)
calcitriol 0.25 mcg Capsule
0.25 mcg PO MOWEFR
carvedilol 25 mg Tablet
25 mg PO BID
warfarin 2.5 mg Tablet
5 mg PO SUMOTUWETHSA
warfarin 2.5 mg Tablet
6.25 mg PO FR
hydralazine 25 mg Tablet
25 mg PO TID
acetaminophen [Tylenol Extra Strength] 500 mg Tablet
1,000 mg PO Q6HPRN PRN (Reason: mild pain)
famotidine 20 mg Tablet
20 mg PO DAILY
losartan 100 mg Tablet
100 mg PO HS
sevelamer carbonate 800 mg Tablet
2,400 mg PO BID
Rx Instructions:
take with breakfast and dinner
sevelamer carbonate 800 mg Tablet
800 mg PO NOON
Rx Instructions:
take with snack
Lokelma 10 gram Powder In Packet
10 g PO TUTHSA
Xphozah 30 mg Tablet
30 mg PO TUTHSA
insulin glargine [Basaglar KwikPen U-100 Insulin] 300 UNITS/3 ML insulin pen
0 unit SC HS
Rx Instructions:
sliding scale
hydroxyzine HCl 25 mg
25 PO HS PRN (Reason: sleep)
insulin aspart U-100 [Novolog U-100 Insulin aspart] 100 unit/mL solution
1 sliding scale dose SC DIRECTED
Rx Instructions:
follow sliding scale insulin as per printed protocol
Discharge Orders:
Discharge Patient (As Directed); Ordered 12/23/23
Ordered By: Santi Fragoso
Discharge Date and Time
Print Language: ARMENIAN
--- NOTE | 2023-12-23 12:25 | W.PN.NEPH.PH ---
Today's Communication / Plan
-
d/c plan
Assessment/Plan
-
IMP:
Uncontrolled Hypertension secondary to Volume Overload
ESRD with Failed Kidney Transplant on Hemodialysis MWF at [facility]
Essential Hypertension on multiple meds
Hyperlipidemia
Insulin-Dependent Diabetes Mellitus
Paroxysmal Atrial Fibrillation
GERD
right chest wall tunneled HD catheter
Hyperphosphatemia
SHPTH
Chr hyperkalemia on Lokelma
h/o Pericarditis
Plan:
A/w CP and htn , CXR vol overload, trop neg
completed HD with UF
feels well today
no extra HD
pt plan t ogo to her unit tomorrow
BP still sub optimal though over all improving
titrate hydralazine to 50mg tid
she feels cramps are from coumadin, will speak to her cards
strict renal diet and FR 33 ounces/day
cont phos binders , Lokelma
cont Tac
d/w pt and daughter at bedside
-
-
Date of Service: December 23, 2023
CC / HPI / ROS
-
Chief Complaint:
EsRD
History of Present Illness:
completed HD yesterday
BP improving
no fever, k normal
Review of Systems:
no cp or sob
Labs
-
Labs:
WBC 5.4 10^3/uL (4.8-10.8) 12/23/23 07:04
RBC 4.74 10^6/uL (4.20-5.40) 12/23/23 07:04
Hgb 12.0 g/dL (12.0-16.0) 12/23/23 07:04
Hct 37.0 % (37.0-47.0) 12/23/23 07:04
Plt Count 161 10^3/uL (130-400) 12/23/23 07:04
Sodium 136 mmol/L (135-145) 12/23/23 07:03
Potassium 4.0 mmol/L (3.5-5.1) D 12/23/23 07:03
Chloride 92 mmol/L (98-107) L 12/23/23 07:03
Carbon Dioxide 27 mmol/L (22-30) 12/23/23 07:03
BUN 48 mg/dl (7-17) H 12/23/23 07:03
Creatinine 6.7 mg/dL (0.6-1.0) H* 12/23/23 07:03
eGFR 6.96 12/23/23 07:03
Glucose 107 mg/dl (70-99) H 12/23/23 07:03
Calcium 9.0 mg/dl (8.4-10.2) 12/23/23 07:03
Phosphorus 4.8 mg/dl (2.5-4.5) H 12/23/23 07:03
Albumin 4.8 g/dl (3.5-5.0) 12/22/23 11:14
Physical Exam
-
Vital Signs:
Vital Signs
Temp Pulse Resp BP Pulse Ox
97.7 F 73 18 139/70 97
12/23/23 11:00 12/23/23 11:00 12/23/23 11:00 12/23/23 11:00 12/23/23 11:00
Cardiovascular:: Regular rate and rhythm
Respiratory:: Bilateral: CTA
Lung Excursion:: Normal
Abdomen:: Nontender and Soft
Extremity Edema:: None: Bilateral:
Fish Catheter: No
--- NOTE | 2023-12-23 14:35 | CM ---
Addendum entered by Jenna Boles 12/23/23 14:37:
HD flowsheet and clinicals faxed to [facility] [phone]
Original Note:
CM met with pt and dtr bedsid-e dtr translated
They reside in a 2nd floor apartment with son with no elevator, 2 full flights
Pt is independent with her ADLs- denies use of ADs
Attends HD at [facility]
Denies financial insecurities
Plan for dc home today
No dc needs noted
Discharge Disposition- home, no needs
== END 2023-12-23 13:28 | disposition home or self-care (01) | DRG 640 ==
LOC: 4 WEST ACU 14:37
PROVIDERS: Emergency Medicine; Physician Assistant; Physician Assistant Medical; ADMITTING PHYSICIAN Hospitalist; ATTENDING PHYSICIAN Hospitalist; CONSULT PHYSICIAN Internal Medicine; EMERGENCY PHYSICIAN Emergency Medicine; FAMILY PHYSICIAN Internal Medicine
PROC: 5A1D70Z Performance of Urinary Filtration, Intermittent, Less than 6 Hours Per Day (ICD-10-PCS; 2023-12-22)
DX: E87.70 Fluid overload, unspecified (principal); N18.6 End stage renal disease; N25.81 Secondary hyperparathyroidism of renal origin; I12.0 Hypertensive chronic kidney disease with stage 5 chronic kidney disease or end stage renal disease; T86.12 Kidney transplant failure; I16.0 Hypertensive urgency; E11.22 Type 2 diabetes mellitus with diabetic chronic kidney disease; I48.0 Paroxysmal atrial fibrillation; K21.9 Gastro-esophageal reflux disease without esophagitis; E83.39 Other disorders of phosphorus metabolism; E78.00 Pure hypercholesterolemia, unspecified; E87.5 Hyperkalemia; Y83.0 Surgical operation with transplant of whole organ as the cause of abnormal reaction of the patient, or of later complication, without mention of misadventure at the time of the procedure; Z99.2 Dependence on renal dialysis; Z87.440 Personal history of urinary (tract) infections; Z79.899 Other long term (current) drug therapy; Z79.4 Long term (current) use of insulin; Z79.01 Long term (current) use of anticoagulants; Z11.52 Encounter for screening for COVID-19
CPT/HCPCS: 70450; 71046; 80048; 80053; 82962; 83036; 83735; 84100; 84443; 84484; 85025; 85027; 85610; 85730; 87811; 93005; 96374; 96375; 96376; 99285; G0257

== ENCOUNTER → 2024-06-29 15:31 | Outpatient (REF) | payer MEDICARE, OTHER, SELFPAY | LOC: RAD 15:31 | PROVIDERS: ATTENDING PHYSICIAN Internal Medicine | DX: R60.0 Localized edema (principal) | CPT/HCPCS: 93971 ==

== ENCOUNTER → 2024-09-01 15:06 | Outpatient (REF) | payer MEDICARE, SELFPAY | LOC: WDC 15:06 | PROVIDERS: ATTENDING PHYSICIAN Internal Medicine | DX: R59.0 Localized enlarged lymph nodes (principal) | CPT/HCPCS: 76642 ==

== ENCOUNTER 2024-09-18 18:39 | Emergency (ER) | payer MEDICARE, SELFPAY ==
[2024-09-18 18:44] VITALS: BP 143/79
[2024-09-18 19:08] VITALS: BP 149/76
[2024-09-18 19:11] VITALS: BMI 22.0
--- NOTE | 2024-09-18 19:24 | ED.GENMED ---
History of Present Illness
General
Chief Complaint: Throat Problem
Source: patient
Exam Limitations: none
Time Seen by Provider: 09/18/24 19:17
Nursing documentation reviewed up to this point in time: agreed with
History of Present Illness
History of Present Illness:
Note:
CHIEF COMPLAINT(S)
Bleeding, chest discomfort, and throat burning.
HISTORY OF PRESENT ILLNESS
The patient is a 54-year-old female with a history of atrial fibrillation on warfarin, ESRD on dialysis, DM, GERD, IBS, presenting with symptoms of bleeding, chest discomfort, and shortness of breath. The symptoms began three days ago with the
patient finding blood on her blankets, primarily around her face, more noticeable at night. She is on warfarin (Coumadin) for management of atrial fibrillation. Last night, she experienced burning and pain upon swallowing, chest pressure, shortness
of breath, and a sense of warmth and flushing in the head. Her chest pressure began last night after eating dinner. She denies prior similar bleeding events and reports bleeding during the night, localized to the face on both sides without evident
triggers. She experiences bleeding when brushing her teeth as well. She is concerned her INR may be elevated. She has no history of swallowing issues today and denies hematemesis or hematochezia. She is able to eat food without difficulty. The
patient mentions a history of fluctuating high blood pressure, reaching 225 mmHg last week. She completes dialysis on Friday, Friday, and Friday and sees a cnc technician, Dr. Maximiliano Guerrero, for care. She denies any history of similar symptoms. She
does not produce urine. Patient has no abdominal pain, nausea, vomiting, fevers or chills, any sick contacts. She denies any diarrhea or constipation.
ADDITIONAL HISTORY OBTAINED FROM SOURCES OTHER THAN THE PATIENT
According to a family member, they observed considerable blood on the patient�s blankets, predominantly at night, and when the patient brushes her teeth.
SOCIAL HISTORY
The patient underwent a pericardial effusion surgery two years prior.
REVIEW OF SYSTEMS
See HPI
PHYSICAL EXAM
Nursing notes reviewed and vital signs reviewed.
General: Patient is well appearing and in no acute distress; non-toxic
Skin: Warm and dry, no rashes or lesions
Head: Normocephalic, atraumatic
Eyes: Sclera non-icteric. EOMs intact.
Neck: Full range of motion of the cervical spine, no stiffness, no nuchal rigidity
Mouth: No pharyngeal erythema, uvula midline
Cardiac: Regular rate and rhythm, no murmurs
Peripheral Vascular: No lower extremity swelling or edema, 2+ dorsalis pedis pulses bilaterally, 2+ radial pulses bilaterally
Pulm: Normal respiratory effort, no wheezes, rales, rhonchi
Abdomen: No abdominal tenderness to palpation
Neuro: CN II-XII intact, no focal neurologic deficits.
Psychiatric: Appropriate mood and affect.
PLAN
After discussion with ED attending, will obtain CTA to evaluate for ascending aortic dissection considering patients combined lightheadedness and sensation of warmth in the head associated with chest pain radiating up into the neck.
DIFFERENTIAL DIAGNOSIS
The Differential Diagnosis includes, in no particular order and is not limited to:
- Hemorrhage Due to Anticoagulation
- Aspirin Exacerbated Respiratory Disease
- Pulmonary Embolism
- Esophageal Rupture
- Thrombocytopenia
- Hypertensive Crisis
- Gastroesophageal Reflux Disease (GERD)
- Upper Respiratory Tract Infection
- Anemia
REVIEW OF PRIOR RECORDS
Reviewed discharge summary from 12/23/2023, patient seen for hypertensive urgency resulting in emergent dialysis. Her blood pressure improved overnight and she was continued on her home blood pressure medication
Reviewed discharge summary from 01/30/2023, patient seen for intractable chest pain, she had chest pain for 5 days she had a small pericardial effusion and they think that her persistent pain may be attributed to either pericarditis or uncontrolled
hypertension
MDM/DISPOSITION
The patient is a 54-year-old female with a history of atrial fibrillation on warfarin, ESRD on dialysis, DM, GERD, IBS, presenting with symptoms of bleeding, chest discomfort, and shortness of breath. Chest discomfort started last night and is
associated with a burning of the throat that has been present for the past 3 days. She reports that sometimes the burning is persistent and it hurts to swallow. She never had anything like this before. In terms of her bleeding, she has noticed
for the past 3 days, her gums have been bleeding and she has noticed some blood on the pillow. On physical exam she is well-appearing in no acute distress, when looking inside of her mouth and her oropharynx there is no signs of active bleeding.
In review of her blood work, she is anemic today however patient reports that she was aware of this because she got blood work yesterday showing something similar and she gets blood work routinely with her dialysis. No indication for blood
transfusion at this time. Did obtain INR and her INR today is 4.36 which is supra therapeutic for A-fib. This is likely causing her bleeding. In discussion with the ED attending and review of up-to-date algorithm, did discuss with holding next
dose of warfarin and following up with the warfarin clinic promptly to adjust any dosage in her medication
CMP reveals stable end-stage renal disease. Did obtain CT angiography to evaluate for dissection considering her symptoms and her CTA was negative for dissection but did show esophageal thickening concerning for esophagitis. Considering patient
has a history of GERD, and burning in her throat especially with the eating, esophagitis may explain her symptoms. She has no hemoptysis, no dark tarry stools no rectal bleeding no concern for GI bleed at this time. Suspect esophagitis/GERD.
Patient was treated with Maalox and she reports that this improved her symptoms and she is currently chest pain and throat pain free at this time. Did want to start PPI trial however patient reports that her cnc technician told her that she cannot
take this medication. Patient does have a GI doctor for IBS so I requested that patient call her GI doctor tomorrow to schedule follow-up appointment and to possibly get an endoscopy. Patient and daughter and family expressed understanding.
Patient's troponin is undetectable and her EKG is showing normal sinus rhythm. Patient reports that the feeling of light headedness and warmth in her head and shortness of breath seem to resolve on its own. Patient stable for discharge.
Past History
Past History
ED Past Medical History: HTN, Hypercholesterolemia, IDDM, Renal failure (Chronic kidney disease stage III/IV.) and Other ( Frequent UTI's)
ED Past Surgical History: Other (History of right kidney transplant, Jaw tumor removed benign)
Social History
Tobacco: Non-smoker
Alcohol: None
Drug: None
Personal:
Living: with family
Employment: Not employed
Family History
Family History: Other (Noncontributory)
Review of Systems
Review of Systems
All Other Systems: ROS reviewed and negative except as documented in HPI and ROS
Phy Exam
Physical Exam
Physical Exam:
see hpi
Course
Orders/Labs/Results
Orders:
Orders
09/18/24 18:49
Electrocardiogram (*1) Urgent
Reason for Study: Shortness of Breath
EKG- Treatment ONCE
09/18/24 19:45
CT Chest Angio W/wo Iv Contras Urgent
Comment:
Reason For Exam: chest pain, neck pain, lightheadedness
09/18/24 19:47
Complete Blood Count/With Diff Urgent
Comprehensive Metabolic Panel Urgent
Prothrombin Time Urgent
Troponin I Urgent
09/18/24 22:19
Mag Hydrox/Al Hydrox/Simeth [Maalox] 30 ml PO NOW STA
Abnormal Lab Results
09/18/24
19:47
WBC 4.4 L 10^3/uL
(4.8-10.8)
RBC 3.71 L 10^6/uL
(4.20-5.40)
Hgb 9.9 L g/dL
(12.0-16.0)
Hct 30.2 L %
(37.0-47.0)
MCH 26.7 L pg
(27.0-31.0)
MCHC 32.8 L g/dL
(33.0-37.0)
RDW 15.2 H %
(11.5-14.5)
Plt Count 103 L 10^3/uL
(130-400)
Absolute Lymphs (auto) 0.9 L 10^3/uL
(1.2-3.4)
Monocytes % 10.1 H %
(1.7-9.3)
PT 41.2 H Sec
(11.4-14.6)
Carbon Dioxide 31 H mmol/L
(22-30)
BUN 37 H mg/dl
(7-17)
Creatinine 7.9 H* mg/dL
(0.6-1.0)
Glucose 157 H mg/dl
(70-99)
09/18/24 19:47
09/18/24 19:47
Vital Signs
Initial and Last Documented VS:
Initial Vital Signs
Temp Pulse Resp BP Pulse Ox
97.8 F 78 16 143/79 97
09/18/24 18:44 09/18/24 18:44 09/18/24 18:44 09/18/24 18:44 09/18/24 18:44
Last Documented Vital Signs
Temp Pulse Resp BP Pulse Ox
97.8 F 84 18 154/80 99
09/18/24 18:44 09/18/24 23:00 09/18/24 23:00 09/18/24 23:00 09/18/24 23:00
*Pulse Oximetry
SaO2: 96
Oxygen Mode of Delivery: Room air
*Critical Care Note
Total Time (30-74mins, 75-104mins- exclusive of procedures): Not Applicable
ED Attending Note
-
Portions of this chart may have been created with voice recognition software.� Occasional wrong word or��sound alike� substitutions may have occurred due to the inherent limitations of voice recognition software.
Discharge Plan
Departure
Patient Disposition: Home (Routine Discharge)
Date of Disposition: 09/18/24
Time of Disposition: 23:06
Patient with high blood pressure during this ER visit?: Yes
Condition: Good
Discharge Problem:
GERD with esophagitis
Instructions: Chest Pain (DC), BLOOD PRESSURE
Prescriptions:
No Action
nifedipine 60 MG tablet extended release
60 mg PO BID
tacrolimus 1 MG capsule
1 mg PO BID
simvastatin 10 MG tablet
10 mg PO HS
dicyclomine 10 mg Capsule
10 mg PO TIDPRN PRN (Reason: gi issue)
calcitriol 0.25 mcg Capsule
0.25 mcg PO MOWEFR
carvedilol 25 mg Tablet
25 mg PO BID
warfarin 2.5 mg Tablet
5 mg PO SUMOTUWETHSA
warfarin 2.5 mg Tablet
6.25 mg PO FR
hydralazine 25 mg Tablet
25 mg PO TID
acetaminophen [Tylenol Extra Strength] 500 mg Tablet
1,000 mg PO Q6HPRN PRN (Reason: mild pain)
famotidine 20 mg Tablet
20 mg PO DAILY
losartan 100 mg Tablet
100 mg PO HS
sevelamer carbonate 800 mg Tablet
2,400 mg PO BID
Rx Instructions:
take with breakfast and dinner
sevelamer carbonate 800 mg Tablet
800 mg PO NOON
Rx Instructions:
take with snack
Lokelma 10 gram Powder In Packet
10 g PO TUTHSA
Xphozah 30 mg Tablet
30 mg PO TUTHSA
insulin glargine [Basaglar KwikPen U-100 Insulin] 300 UNITS/3 ML insulin pen
0 unit SC HS
Rx Instructions:
sliding scale
hydroxyzine HCl 25 mg
25 PO HS PRN (Reason: sleep)
insulin aspart U-100 [Novolog U-100 Insulin aspart] 100 unit/mL solution
1 sliding scale dose SC DIRECTED
Rx Instructions:
follow sliding scale insulin as per printed protocol
Referrals:
UNKNOWN - PT DOES,NOT KNOW [Family Provider]
Activity Restrictions/Additional Instructions:
Please follow-up with your invoice checker.
Your INR today was 4.36. Please withhold your warfarin dose tomorrow and please call your warfarin clinic tomorrow for instructions to resume or change dosing.
Please follow-up with your cnc technician. Please call your GI doctor. Usually, the treatment for esophagitis/GERD PPI such as omeprazole or Protonix however, given the concern with your kidneys, I would defer this treatment to your GI doctor. You
could also take Maalox which you can get over the counter.
PLEASE RETURN TO THE EMERGENCY DEPARTMENT SHOULD YOU DEVELOP CHEST PAIN, SHORTNESS OF BREATH, INTRACTABLE NAUSEA OR VOMITING, FEVERS OR CHILLS, FAINTING SPELLS, ABDOMINAL PAIN, OR ANY OTHER SIGNS OR SYMPTOMS WORRISOME TO YOU.
Interventions
Interventions:
*Risk Screen - Suicide Last Done: 09/18/24 19:11
*General Assessment Last Done: 09/18/24 19:11
*Neglect/Abuse Screening Last Done: 09/18/24 19:05
*ED- Fall Risk Assessment Last Done: 09/18/24 19:11
*ED COVID-19 Vaccine History Last Done: 09/18/24 19:11
*Nursing Disposition Last Done: 09/18/24 23:18
ED- Cardiac Assessment Last Done: 09/18/24 19:11
ED-EENT Assessment Last Done: 09/18/24 19:11
ED- Pulmonary Assessment Last Done: 09/18/24 19:11
Discharge Date and Time
Discharge Date/Time: 09/18/24 23:20
Print Language: SPANISH
[2024-09-18 19:54] LABS: % Basophils 0.5 % (0-2); % Immature Granulocytes 0.2 % (0-0.5); % Lymphocytes 20.6 % (20.5-51.1); % Monocytes 10.1 % (1.7-9.3); % Neutrophils 65.6 % (42.2-75.2); Absolute Eosinophils 0.1 10^3/uL (0-0.7); Absolute Lymphocytes 0.9 10^3/uL (1.2-3.4); Absolute Monocytes 0.4 10^3/uL (0.1-0.6); Absolute Neutrophils 2.9 10^3/uL (1.4-6.5); Hematocrit 30.2 % (37.0-47.0); Hemoglobin 9.9 g/dL (12.0-16.0); Mean Corp Hgb Conc. 32.8 g/dL (33.0-37.0); Mean Corpuscular Hgb 26.7 pg (27.0-31.0); Mean Corpuscular Volume 81.4 fL (81.0-99.0); Mean Platelet Volume 8.9 fL (7.4-10.4); Nucleated Red Blood Cells % 0 %; Platelet Count 103 10^3/uL (130-400); Red Blood Cell Count 3.71 10^6/uL (4.20-5.40); Red Cell Dist. Width 15.2 % (11.5-14.5); White Blood Cell Count 4.4 10^3/uL (4.8-10.8)
[2024-09-18 20:00] VITALS: BP 133/67
[2024-09-18 20:05] LABS: INR 4.36; PT 41.2 Sec (11.4-14.6)
[2024-09-18 20:18] LABS: Troponin I < 0.012 ng/ml
[2024-09-18 20:44] LABS: ALT (SGPT) 12 U/L (0-35); AST (SGOT) 19 U/L (14-36); Albumin 4.4 g/dl (3.5-5.0); Alkaline Phosphatase 97 U/L (38-126); Blood Urea Nitrogen 37 mg/dl (7-17); Calcium 9.3 mg/dl (8.4-10.2); Carbon Dioxide 31 mmol/L (22-30); Chloride 99 mmol/L (98-107); Estimated Creatinine Clearance 7 ml/min; Glucose 157 mg/dl (70-99); Potassium 4.3 mmol/L (3.5-5.1); Sodium 141 mmol/L (135-145); Total Bilirubin 0.6 mg/dl (0.2-1.3); eGFR 5.68
[2024-09-18 21:00] VITALS: BP 124/64
[2024-09-18 22:09] VITALS: BP 146/75
[2024-09-18] MEDS: MAALOX 30 ML PO (22:47)
[2024-09-18 23:00] VITALS: BP 154/80
== END 2024-09-18 23:20 | disposition home or self-care (01) ==
LOC: EMR 18:39
PROVIDERS: Physician Assistant; EMERGENCY PHYSICIAN Student in an Organized Health Care Education/Training Program
DX: K21.00 Gastro-esophageal reflux disease with esophagitis, without bleeding (principal); I12.0 Hypertensive chronic kidney disease with stage 5 chronic kidney disease or end stage renal disease; N18.6 End stage renal disease; I48.91 Unspecified atrial fibrillation; E11.22 Type 2 diabetes mellitus with diabetic chronic kidney disease; Z79.01 Long term (current) use of anticoagulants
CPT/HCPCS: 99285; 71275; 80053; 84484; 85025; 85610; 93005; Q9967

== ENCOUNTER 2024-10-29 03:09 | Inpatient (IN) | payer OTHER, SELFPAY ==
[2024-10-28 23:41] VITALS: BP 210/99
[2024-10-29] VITALS (49 sets, daily range): BP systolic 111–220; BP diastolic 57–93; BMI 21.6; BMI 21.2
--- NOTE | 2024-10-29 00:41 | ED.GENMED ---
History of Present Illness
General
Chief Complaint: Blood Pressure Problem
Source: patient
Exam Limitations: none
Time Seen by Provider: 10/29/24 00:16
Nursing documentation reviewed up to this point in time: agreed with
History of Present Illness
History of Present Illness:
Patient with history of end-stage renal disease on hemodialysis (Friday, Friday, Friday) and hypertension, presents to ED secondary to elevated blood pressure noted at home along with 'not feeling well', as well as headache, nausea sensation and
chest pain. Patient has had number of similar symptoms in the past, secondary to elevated blood pressure. Patient did take extra dose of hydralazine, approxi-1 hour prior to arrival, without improvement in symptoms. Denies recent illness. Denies
recent travel. Patient reports having received full dialysis session on Friday. Denies dizziness. Denies blurred vision. Denies shortness of breath.
Past History
Past History
ED Past Medical History: HTN, Hypercholesterolemia, IDDM, Renal failure (Chronic kidney disease stage III/IV.) and Other ( Frequent UTI's)
ED Past Surgical History: Other (History of right kidney transplant, Jaw tumor removed benign)
Social History
Tobacco: Non-smoker
Alcohol: None
Drug: None
Personal:
Living: with family
Employment: Not employed
Family History
Family History: Other (Noncontributory)
Review of Systems
Review of Systems
Allergies reviewed?: Yes
All Other Systems: ROS reviewed and negative except as documented in HPI and ROS
Constitutional: Reports no symptoms
Respiratory: Reports no symptoms
Cardiac: Reports chest pain
ABD/GI: Reports nausea
Musculoskeletal: Reports no symptoms
Skin: Reports no symptoms
Neurological: Reports headache; Denies dizzy or weakness
Phy Exam
Physical Exam
Physical Exam:
Physical Exam
General: mild distress, not acutely ill. Afebrile. Hypertensive.
Head: nc/at. eomi
Neck: supple. no meningeal signs.
Heart: s1/s2 regular rate and rhythm
Lungs: no acute respiratory distress. clear bilaterally
Abdomen: normal bowel sounds. not tender.
Neuro: alert and oriented x 3. no focal neurological deficits
Skin: no rash
Psychiatric: well kept. interactive and cooperative
Extremities: no edema. no calf tenderness.
Course
Orders/Labs/Results
Orders:
Orders
10/28/24 23:49
EKG [Electrocardiogram (*1)] Urgent
Reason for Study: Chest Pain
10/28/24 23:50
EKG- Treatment ONCE
10/29/24 00:25
Acetaminophen [Tylenol] 650 mg PO NOW STA
HydrALAZINE [Apresoline] 10 mg IV NOW STA
Ondansetron Injectable [Zofran] 4 mg IV NOW STA
10/29/24 00:44
Complete Blood Count/No Diff Urgent
Comprehensive Metabolic Panel Urgent
Magnesium Urgent
Phosphorus Urgent
TSH Urgent
Troponin I Urgent
10/29/24 01:30
Nitroglycerin 100 mg/250 ml [Nitroglycerin Premix] 100 mg in 250 ml IV PER PROTOCOL
Initial dose in mcg/min, then titrate:: 50
Titrate to keep:: MAP 70-100 mmHg
Titrate by mcg/min:: 5 mcg/min, may increase by 10 mcg/min if dose > 20 mcg/min
Frequency of titrations (minutes):: every 3-5 minutes
Maximum dose in mcg/min:: 200
Begin to taper infusion when:: Remained at goal for 2hrs
Taper by mcg/min:: 5 mcg/min
Frequency of taper (minutes) if patient maintains goal:: 30
Taper to off?: Yes
If infusion off & no longer maintaining goal:: Contact Provider
10/29/24 01:58
CT Head W/o Iv Contrast Urgent
Comment:
Reason For Exam: headache with severe hypertension
10/29/24 02:44
Famotidine [Pepcid] 20 mg IV NOW STA
10/29/24 02:50
Admit/Transfer Patient As Directed
Co-Sign Provider:
Level of Care: Inpatient admission
Assign to:: ICU
Physician / Group: Molly
Diagnosis: Hypertensive urgency
Reason for Hospitalization: Hypertensive urgency
Expected length of stay greater than two midnights?: Yes
ELOS- Estimated Length of Stay in days: 2
I certify the patient meets the requirements for IP care: Yes
10/29/24 02:51
PRN Pain Medication Management As Directed
May give lesser potent ordered pain med per pt: Yes
preference::
Protocol:: Medication orders for pain may be administered in a
manner that supports deferring to patient preference
when the pt is:
- Requesting an ordered lesser potent pain medication.
Least to most potent pain medications are defined
as: acetaminophen < NSAID < tramadol < opioids
(morphine, oxycodone, hydromorphone).
- Requesting a lesser dose of the same medication IF
ORDERED.
- Requesting a less intrusive route of administration
if both routes are prescribed by the provider (PO <
IV).
10/29/24 02:53
Code Status As Directed
Resuscitation Status: Full Code
10/29/24 03:00
Flush (0.9% Sodium Chloride) [Flush (Nss)] See Dose Instructions IV PER PROTOCOL
10/29/24 04:16
Acetaminophen [Tylenol] 1,000 mg PO Q6HPRN PRN mild pain
Bisacodyl [Dulcolax] 10 mg RECTAL [id number] PRN
Dicyclomine [Bentyl] 10 mg PO TIDPRN PRN gi issue
Docusate W/Senna [Senokot-S] 1 tablet PO BIDPRN PRN
Nitroglycerin 100 mg/250 ml [Nitroglycerin Premix] 100 mg in 250 ml IV PER PROTOCOL
Currently infusing. Continue current dose and titrate:: Yes
Titrate to keep:: SBP < 160 mmHg
Titrate to keep other:: SBP > 140
Titrate by mcg/min:: 5 mcg/min, may increase by 10 mcg/min if dose > 20 mcg/min
Frequency of titrations (minutes):: every 3-5 minutes
Maximum dose in mcg/min:: 200
Begin to taper infusion when:: Remained at goal for 2hrs
Taper by mcg/min:: 5 mcg/min
Frequency of taper (minutes) if patient maintains goal:: 30
Taper to off?: Yes
If infusion off & no longer maintaining goal:: Contact Provider
Ondansetron Injectable [Zofran] 4 mg IV Q6HPRN PRN
Polyethylene Glycol Powder [Miralax] 17 grams PO DAILYPRN PRN
10/29/24 04:16
Consult Notification Routine
Specialty to Notify: Nephrology
Date consulting provider notified: 10/29/24
Time consulting provider notified: 07:43
Notified:: Provider
Comment: via TT
NEPHROLOGY CONSULT Routine
Consulting Provider: Mat Flood
Was physician already notified: No
Reason for consult: ESRD HD M/W/F here with HTN urgency
VTE Contraindication Routine
VTE Mechanical Device Contraindication: Medical Contraindication
Pharmocologic Contraindication: Medical Contraindication
Activity As Directed
Activity Level: With Assistance
Bedside Glucose Monitoring As Directed
Frequency: AC&HS
Neurological Checks As Directed
Frequency: Per unit guidelines
Vital Signs As Directed
Frequency: Per unit guidelines
Pulse Ox/spot Check [RESP] Routine
Quantity: 1
10/29/24 04:49
Basic Metabolic Panel IN AM
Complete Blood Count/No Diff IN AM
Troponin I IN AM
10/29/24 Breakfast
1800 calorie (15 carb) Diabetic
At Your Request: Limited Participation
10/29/24 07:30
Insulin Aspart Corrective Low [Novolog Flexpen-Low Resistance] See Protocol SC AC
10/29/24 08:00
Calcitriol [Rocaltrol] 0.25 mcg PO MoWeFr@0800
Carvedilol [Coreg] 25 mg PO BID AT 0800,1700
Famotidine [Pepcid] 20 mg PO DAILY
HydrALAZINE [Apresoline] 25 mg PO TID
NIFEdipine EXTENDED RELEASE [Procardia Xl (Extended Release)] 60 mg PO BID
Sevelamer Carbonate [Renvela] 2,400 mg PO BID AT 0800,1700
Tacrolimus [Prograf] 1 mg PO BID
10/29/24 12:00
Sevelamer Carbonate [Renvela] 800 mg PO NOON
10/29/24 18:00
Warfarin [Coumadin] 5 mg PO QPM
10/29/24 22:00
Atorvastatin [Lipitor] 10 mg PO HS
Carvedilol [Coreg] 12.5 mg PO HS
HydrOXYZINE [Atarax] 25 mg PO HS
Insulin Glargine Lantus [Lantus] 8 units Subcutaneous Insulin Syringe [Syringe-Insulin] 0 unit SC HS
Losartan [Cozaar] 100 mg PO HS
Abnormal Lab Results
10/29/24
00:44
WBC 4.5 L 10^3/uL
(4.8-10.8)
RBC 3.90 L 10^6/uL
(4.20-5.40)
Hgb 10.5 L g/dL
(12.0-16.0)
Hct 32.4 L %
(37.0-47.0)
MCH 26.9 L pg
(27.0-31.0)
MCHC 32.4 L g/dL
(33.0-37.0)
RDW 15.4 H %
(11.5-14.5)
Plt Count 105 L 10^3/uL
(130-400)
BUN 31 H mg/dl
(7-17)
Creatinine 7.2 H* mg/dL
(0.6-1.0)
Glucose 105 H mg/dl
(70-99)
Magnesium 2.8 H mg/dl
(1.6-2.3)
Alkaline Phosphatase 157 H U/L
(38-126)
10/29/24 00:44
10/29/24 00:44
Vital Signs
Initial and Last Documented VS:
Initial Vital Signs
Temp Pulse Resp BP Pulse Ox
98.0 F 61 18 210/99 100
10/28/24 23:41 10/28/24 23:41 10/28/24 23:41 10/28/24 23:41 10/28/24 23:41
Last Documented Vital Signs
Temp Pulse Resp BP Pulse Ox
98.3 F 77 14 131/72 97
10/29/24 19:38 10/29/24 22:30 10/29/24 22:30 10/29/24 22:01 10/29/24 22:15
MDM/Problems Addressed
MDM/Problems Addressed:
History and exam consistent with hypertensive emergency. Patient will be started on nitroglycerin infusion and admitted for further evaluation and treatment, including dialysis tomorrow morning. Patient otherwise remains neurologically intact. In
light of patient's persistent symptoms, will obtain CT head, to evaluate for potential intracranial hemorrhage
Critical care statement: A total of 40 minutes of critical care time was provided for this patient. This includes management of unstable vital signs, evaluation of the patient at bedside, reviewing the patient's pertinent medical records, review of
old EKGs and review of pertinent medical records. This time with separate from time utilized to perform the aforementioned documented procedures
*Pulse Oximetry
SaO2: 100
Oxygen Mode of Delivery: Room air
Patient hypoxic: no
*EKG
Interpreted by ED Provider?: Yes
EKG Intrepretation Date: 10/29/24
Heart Rate: 61
Rate: normal
Rhythm: sinus
[place]: normal axis
Interval: normal interval
*Critical Care Note
Total Time (30-74mins, 75-104mins- exclusive of procedures): 40 min
ED Attending Note
-
Portions of this chart may have been created with voice recognition software.� Occasional wrong word or��sound alike� substitutions may have occurred due to the inherent limitations of voice recognition software.
Discharge Plan
Departure
Patient Disposition: Admit
Date of Disposition: 10/29/24
Time of Disposition: 02:02
Presentation/result/management discussed w/ accepting MD/DO: Hospitalist
Discharge Problem:
Hypertensive urgency
Interventions
Interventions:
*General Assessment Last Done: 10/29/24 00:17
*Neglect/Abuse Screening Last Done: 10/29/24 00:17
*ED- Fall Risk Assessment Last Done: 10/29/24 00:17
*Nursing Disposition Last Done: 10/29/24 04:20
ED- Cardiac Assessment Last Done: 10/29/24 00:17
ED- Neurological Assessment Last Done: 10/29/24 00:17
ED- Pulmonary Assessment Last Done: 10/29/24 00:17
Discharge Date and Time
Discharge Date/Time: 10/29/24 04:20
[2024-10-29 00:59] LABS: Hematocrit 32.4 % (37.0-47.0); Hemoglobin 10.5 g/dL (12.0-16.0); Mean Corp Hgb Conc. 32.4 g/dL (33.0-37.0); Mean Corpuscular Volume 83.1 fL (81.0-99.0); Platelet Count 105 10^3/uL (130-400); Red Cell Dist. Width 15.4 % (11.5-14.5)
[2024-10-29] MEDS: TYLENOL 650 MG PO (01:00)
[2024-10-29] MEDS: ZOFRAN 4 MG IV (01:01)
[2024-10-29] MEDS: APRESOLINE 10 MG IV (01:02)
[2024-10-29 01:18] LABS: Troponin I 0.024 ng/ml
[2024-10-29 01:37] LABS: ALT (SGPT) 21 U/L (0-35); AST (SGOT) 30 U/L (14-36); Albumin 4.9 g/dl (3.5-5.0); Alkaline Phosphatase 157 U/L (38-126); Blood Urea Nitrogen 31 mg/dl (7-17); Calcium 10.0 mg/dl (8.4-10.2); Carbon Dioxide 27 mmol/L (22-30); Chloride 100 mmol/L (98-107); Estimated Creatinine Clearance -4 ml/min; Glucose 105 mg/dl (70-99); Magnesium 2.8 mg/dl (1.6-2.3); Potassium 3.6 mmol/L (3.5-5.1); Sodium 142 mmol/L (135-145); Total Protein 7.5 g/dl (6.3-8.2); eGFR 6.34
[2024-10-29] MEDS: NITROGLYCERIN PREMIX 250 IV (01:44)
[2024-10-29 01:48] LABS: TSH 0.63 uIU/ml (0.47-4.68)
--- NOTE | 2024-10-29 02:23 | HPS.HSE ---
Family Physician
-
Family Physician: Richard Sweet MD
Chief Complaint
-
Elevated blood pressure
History of Present Illness
Patient is a 54-year-old female with past medical history of insulin-dependent diabetes, ESRD status post failed kidney transplant now on hemodialysis Friday, primary hypertension, insulin-dependent diabetes mellitus, atrial
fibrillation, chronic coagulopathy with Coumadin who was presented with a significantly elevated blood pressure at home.
He reports elevated blood pressure along with 'not feeling well', as well as headache, nausea sensation and chest pain. Patient has had number of similar symptoms in the past, secondary to elevated blood pressure. Patient did take extra dose of
hydralazine, approxi-1 hour prior to arrival, without improvement in symptoms.
She also reported that she had 3 episodes of watery stools today in the last 24 hours. She denies having any fevers or chills. She denies any sick contact. She has not been on any recent antibiotics.
She reported compliance with a dialysis session and did get dialysis on Friday for 3 any of hours. She says she acting target dry weight of 57 kg. She reports compliance with salt restricted and fluid restricted diet.
In the Emergency Department she was hypertensive to 220/90 with a pulse of 61 satting 100% on room air. ECG shows a normal sinus rhythm at a rate of 61 with flipped T waves in 3 unchanged from prior. CBC was unchanged from prior unremarkable.
Electrolytes in the normal range. BUN and creatinine consistent with end-stage renal disease and on hemodialysis.
Troponin was 0.024.
Medical History
Past Medical History
Past Medical History: Reports Other
Additional Past Medical History:
ESRD with Failed Kidney Transplant on Hemodialysis
Hyperphosphatemia
Essential Hypertension
Hyperlipidemia
Insulin-Dependent Diabetes Mellitus
Paroxysmal Atrial Fibrillation
GERD
Past Surgical History: Reports Other
Additional Past Surgical History:
Right Kidney Transplant
Jaw Tumor Removal
Social History
Tobacco: Non-smoker
Alcohol: None
Drug: None
Family History
Family History: Not pertinent
Allergies / Home Medications
Allergies reflects when Allergies were last updated in [facility].
Home Medications with original date entered in [facility]
Allergy/Medication List:
Allergies
Allergy/AdvReac Type Severity Reaction Status Date / Time
No Known Allergies Allergy Verified 12/22/23 10:39
Home Medications
nifedipine 60 mg tablet,extended release 60 mg PO BID Blood Pressure 07/22/19
tacrolimus 1 mg capsule, immediate-release 1 mg PO BID Transplant 07/22/19
simvastatin 10 mg tablet 10 mg PO HS High Cholesterol 07/24/21
calcitriol 0.25 mcg capsule 0.25 mcg PO MOWEFR Kidney Disease 10/03/22
dicyclomine 10 mg capsule 10 mg PO TIDPRN PRN gi issue 10/03/22
insulin aspart U-100 100 unit/mL subcutaneous solution (Novolog U-100 Insulin aspart) 1 sliding scale dose SC DIRECTED #10 mL 01/30/23
acetaminophen 500 mg tablet (Tylenol Extra Strength) 1,000 mg PO Q6HPRN PRN mild pain 12/22/23
carvedilol 25 mg tablet 25 mg PO BID 12/22/23
famotidine 20 mg tablet 20 mg PO DAILY 12/22/23
hydralazine 25 mg tablet 25 mg PO TID 12/22/23
insulin glargine 100 unit/mL (3 mL) subcutaneous pen (Basaglar KwikPen U-100 Insulin) 4-6 units SC HS Diabetes 12/22/23
losartan 100 mg tablet 100 mg PO HS 12/22/23
sevelamer carbonate 800 mg tablet 2,400 mg PO BID 12/22/23
sevelamer carbonate 800 mg tablet 800 mg PO NOON 12/22/23
sodium zirconium cyclosilicate 10 gram oral powder packet (Lokelma) 10 g PO TUTHSA 12/22/23
tenapanor 30 mg tablet (Xphozah) 30 mg PO TUTHSA 12/22/23
warfarin 2.5 mg tablet 5 mg PO SUMOTUWETHSA 12/22/23
warfarin 2.5 mg tablet 6.25 mg PO FR 12/22/23
Review of Systems
-
Constitutional: Reports No Symptoms
EENT: Reports No Symptoms
Respiratory: Reports No Symptoms
Cardiac: Reports Chest Pain
Abdomen/GI: Reports Nausea and Diarrhea
: Reports No Symptoms
Musculoskeletal: Reports No Symptoms
Skin: Reports No Symptoms
Neurological: Reports No Symptoms
Endocrine: Reports No Symptoms
Hematologic/Lymphatic: Reports No Symptoms
Psych: Reports No Symptoms
Physical Exam
Vital Signs
Vital Signs
Temp Pulse Resp BP Pulse Ox
98.0 F 61 18 220/89 100
10/28/24 23:41 10/28/24 23:41 10/28/24 23:41 10/29/24 01:02 10/29/24 00:43
Physical Exam
General: Comfortable and Conversant
HEENT: Anicteric and Moist mucous membranes
Respiratory: Clear and Non Labored Respirations
Cardiac: S1/S2 and Regular Rhythm
GI: Soft and Non Tender
Rectal: Deferred by Provider
Musculoskeletal: No Clubbing, No Cyanosis and No Edema
Skin: Warm and Dry
Neuro: Awake, Alert, Oriented and Nonfocal/grossly intact
Psych: Calm
Laboratory Results
-
10/29/24 00:44
10/29/24 00:44
Laboratory Results
Total Bilirubin 0.9 mg/dl (0.2-1.3) 10/29/24 00:44
AST 30 U/L (14-36) 10/29/24 00:44
ALT 21 U/L (0-35) 10/29/24 00:44
Alkaline Phosphatase 157 U/L (38-126) H 10/29/24 00:44
Troponin I 0.024 ng/ml 10/29/24 00:44
Data Reviewed
-
Medical Tests (Nuc Med, Echo, EKG etc): Image Personally Visualized and interpreted
Lab Data: Labs Reviewed by me
Old Records: Reviewed
Impression/Plan
-
IMPRESSION:
54-year-old with history of hypertensive urgency, end-stage renal disease on hemodialysis, insulin-dependent diabetes, history of failed kidney transplant, chronic blood clots on chronic anticoagulation presenting to the emergency department with
headache chest discomfort and elevated blood pressure with a troponin of 0.02. Blood pressure was elevated at 220 systolic. Patient is otherwise hemodynamically stable and not requiring supplemental oxygen without any evidence of overt volume
overload. Suspect dietary noncompliance versus elevated target weight resulting in recurrent hypertensive episodes. Outpatient physicians are titrating the medications for blood pressure control. ECG is nonischemic. Due to complaints of
persistent headache and bilateral numbness weakness and pain cannot rule out dissection.
PLAN:
Hypertensive urgency
- Admit to ICU
- Continue nitroglycerin wean for BP control
- CT dissection
- Continue home antihypertensives including hydralazine, Coreg, losartan and nifedipine
- Trend troponin
ESRD
- Consult nephrology for Friday HD
- Continue calcitriol\\sevelamer
- Continue home Lokelma home therapy
- Hold tenapanor given complaint of diarrhea
- Continue tacrolimus 1 twice daily
Anticoagulation
- On chronic warfarin, INR 6.6, holding coumadin and repeat INR
Diarrhea -no further episodes while in ED
- Monitor bowel movements for now
- Hold tenapanor
DVT prophylaxis�on warfarin
CODE STATUS�full code
[2024-10-29] MEDS: PEPCID 20 MG IV (03:23)
[2024-10-29 04:59] LABS: Hematocrit 30.2 % (37.0-47.0); Hemoglobin 9.9 g/dL (12.0-16.0); Mean Corp Hgb Conc. 32.8 g/dL (33.0-37.0); Mean Corpuscular Volume 81.2 fL (81.0-99.0); Platelet Count 93 10^3/uL (130-400); Red Cell Dist. Width 15.3 % (11.5-14.5)
[2024-10-29 05:07] LABS: APTT 53.0 Sec (23.4-35.0); PT 56.9 Sec (11.4-14.6)
[2024-10-29 05:12] LABS: INR 6.69
--- NOTE | 2024-10-29 05:27 | PTCARENOTE ---
Admitted pt from ED with hypertensive urgency on nitro gtt, order noted to keep MAP 70-100. Pt cooperative, primarily lithuanian speaking with daughter at bedside. Updated on plan of care. Labs sent/additional IV placed. CHG completed. Oriented to
unit. Will monitor.
[2024-10-29 05:37] LABS: Troponin I 0.031 ng/ml
[2024-10-29 05:56] LABS: Blood Urea Nitrogen 36 mg/dl (7-17); Calcium 9.8 mg/dl (8.4-10.2); Carbon Dioxide 26 mmol/L (22-30); Chloride 102 mmol/L (98-107); Estimated Creatinine Clearance 8 ml/min; Glucose 86 mg/dl (70-99); Potassium 3.7 mmol/L (3.5-5.1); Sodium 138 mmol/L (135-145); eGFR 6.24
--- NOTE | 2024-10-29 07:05 | CON.INTV ---
Consultation
Consultation Request
Date/Time Consultation Requested: 10/29/24
Date/Time Consultation Performed: 10/29/24
Performing Provider: Steven
Reason for Consultation: HTN ER
Medical History
-
History of Present Illness:
Patient is a 54-year-old female with past medical history of insulin-dependent diabetes, ESRD status post failed kidney transplant now on HD MWF, primary hypertension, insulin-dependent diabetes mellitus, atrial fibrillation on Coumadin who was
presented with a significantly elevated blood pressure at home. She reports 'not feeling well' as well as headache, nausea and chest pain. Patient has had number of similar symptoms in the past, secondary to elevated blood pressure. Patient did
take extra dose of hydralazine, ~1 hour prior to arrival, without improvement in symptoms. In ER, she was hypertensive to 220/90 with a pulse of 61, satting 100% on room air. Troponin was 0.024. ECG shows a normal sinus rhythm. Labs are
unremarkable. She is started on a Nitro gtt and admitted to ICU for hypertensive emergency.
Past Medical History
Past Medical History: Other (see list below)
Social History
Tobacco: Non-smoker
Alcohol: None
Drug: None
Family History
Family History: Reviewed & Not Pertinent
Allergies / Home Medications
Allergies
Allergy/AdvReac Type Severity Reaction Status Date / Time
No Known Allergies Allergy Verified 09/18/24 18:47
Home Medications
�Medication �Instructions �Recorded �Confirmed �Last Taken �Type
nifedipine 60 mg tablet,extended 60 mg PO BID Blood Pressure 07/22/19 12/22/23 01/27/23 History
release
tacrolimus 1 mg capsule, 1 mg PO BID Transplant 07/22/19 12/22/23 01/27/23 History
immediate-release
simvastatin 10 mg tablet 10 mg PO HS High Cholesterol 07/24/21 12/22/23 01/27/23 History
calcitriol 0.25 mcg capsule 0.25 mcg PO MOWEFR Kidney Disease 10/03/22 01/28/23 01/27/23 History
dicyclomine 10 mg capsule 10 mg PO TIDPRN PRN gi issue 10/03/22 12/22/23 01/27/23 History
acetaminophen 500 mg tablet 1,000 mg PO Q6HPRN PRN mild pain 12/22/23 12/22/23 Unknown History
(Tylenol Extra Strength)
carvedilol 25 mg tablet 25 mg PO BID Heart Failure 12/22/23 12/22/23 Unknown History
famotidine 20 mg tablet 20 mg PO DAILY Gastrointestinal 12/22/23 12/22/23 Unknown History
Issue
hydralazine 25 mg tablet 25 mg PO TID Blood Pressure 12/22/23 12/22/23 Unknown History
hydroxyzine HCl 25 PO HS PRN sleep 12/22/23 1 Day Ago History
~12/21/23
insulin glargine 100 unit/mL (3 0 unit SC HS Diabetes 12/22/23 12/22/23 Unknown History
mL) subcutaneous pen (Basaglar
KwikPen U-100 Insulin)
losartan 100 mg tablet 100 mg PO HS Blood Pressure 12/22/23 12/22/23 Unknown History
sevelamer carbonate 800 mg tablet 2,400 mg PO BID Kidney Disease 12/22/23 12/22/23 Unknown History
sevelamer carbonate 800 mg tablet 800 mg PO NOON Kidney Disease 12/22/23 12/22/23 Unknown History
s[facility] 12/22/23 12/22/23 Unknown History
gram oral powder packet (Lokelma)
tenapanor 30 mg tablet (Xphozah) 30 mg PO TUTA Kidney Disease 12/22/23 12/22/23 Unknown History
warfarin 2.5 mg tablet 5 mg PO SUMOTUWETHSA Blood Clot 12/22/23 12/22/23 Unknown History
Prevention/Tx
warfarin 2.5 mg tablet 6.25 mg PO FR Blood Clot 12/22/23 12/22/23 Unknown History
Prevention/Tx
insulin aspart U-100 100 unit/mL 1 sliding scale dose SC 12/23/23 12/22/23 Unknown History
subcutaneous solution (Novolog DIRECTED Diabetes
U-100 Insulin aspart)
Review of Systems
-
History Source: Patient
All other systems: Negative unless noted
Vitals / Labs / Diagnostic Testing
Vital Signs
Temp Pulse Resp BP Pulse Ox
98.3 F 72 11 155/74 95
10/29/24 05:04 10/29/24 06:30 10/29/24 06:30 10/29/24 06:30 10/29/24 06:30
Lab Data
10/29/24 04:49
10/29/24 04:49
Laboratory Results
10/29/24 10/29/24 10/29/24
04:49 04:49 04:49
PT Cancelled 56.9 H
INR Cancelled 6.69 H*
APTT 53.0 H
Diagnostic Testing:
Physical Exam
-
HEENT: Normocephalic, Anicteric and Moist Mucous Membranes
Cardiovascular: S1/S2, Regular Rhythm and Murmur
Respiratory: Clear and Non-Labored Respirations
GI: Soft, Non Distended and Non Tender
Neurology: Awake, Alert, Oriented and No Motor Deficits
Skin: Warm, Dry and Good Color
General: Comfortable and Other (NAD)
Assessment
-
Patient is a 54-year-old female with past medical history of insulin-dependent diabetes, ESRD status post failed kidney transplant now on HD MWF, primary hypertension, insulin-dependent diabetes mellitus, atrial fibrillation on Coumadin who was
presented with a significantly elevated blood pressure at home. She reports 'not feeling well' as well as headache, nausea and chest pain. Patient has had number of similar symptoms in the past, secondary to elevated blood pressure. Patient did
take extra dose of hydralazine, ~1 hour prior to arrival, without improvement in symptoms. In ER, she was hypertensive to 220/90 with a pulse of 61, satting 100% on room air. Troponin was 0.024. ECG shows a normal sinus rhythm. Labs are
unremarkable. She is started on a Nitro gtt and admitted to ICU for hypertensive emergency.
Hypertensive emergency
Malaise
Nausea
Chest pain
Mild pancytopenia
Supratherapeutic INR
Conditions present [employer]
ESRD with Failed Kidney Transplant on Hemodialysis MWF
Hyperphosphatemia
Essential Hypertension
Hyperlipidemia
Insulin-Dependent Diabetes Mellitus
Paroxysmal Atrial Fibrillation on Coumadin
GERD
Right chest wall tunneled HD catheter
Chronic hyperkalemia
Plan
No current signs of metabolic encephalopathy or MS changes/following commands
Denies pain at this time.
Pain/sedation: PRN
RASS goals: 0
Hemodynamically stable, not requiring pressors.
Cardiac history reviewed--poorly controlled HTN
Now on Nitro gtt, weaning down
Prior ECHO reviewed indicating stage III DD, repeat study may be indicated
Murmur on exam
Resume home meds w/ titration per team
Monitor on telemetry
Oxygen needs: stable on RA
Prior history of lung disease: none
Supplemental O2 as indicated to maintain sats > 89%
CXR/CT reviewed indicating NAD, clear no edema
Diet advanced
Aspiration precautions, HOB > 30 degrees
Speech therapy eval can be considered if at elevated risk
GI prophylaxis if indicated for mechanical ventilation >48 hours, prior history of GERD, stress ulcer formation in the critically ill
HD history, renal consulted
HD planning today
Follow urine output, critical I/Os
Replete electrolytes as needed
No signs/symptoms suspicious for infectious etiology at this time
Observe off antibiotics for now
Follow fever trend, WBC count
INR supratherapeutic, hold Coumadin
Repeat INR later today
CBC stable, no signs of bleeding or coagulopathy.
DVT prophylaxis as assessed based on risk, including mechanical SCDs
Can transfuse if indicated for Hb <7, plt < 10
No prior thyroid disease
H/o diabetes, can continue on home meds, SS for coverage
HbA1c 5.2 (2023)
Can likely transfer to [facility] [place] [facility] once off nitro, we will sign off upon transfer
Diagnostic Data
Chest X-Ray: 10/29/24. Clear lungs. 2. Pulmonary edema seen on prior study has resolved.
CT Scan: Angio 10/29/24. No evidence of central pulmonary embolism or thoracic aortic dissection.
2. Mild bibasilar subsegmental atelectasis, otherwise clear lungs.
3. Mild coronary arterial calcification. Please correlate with symptoms of and risk factors for coronary artery disease, with further workup as clinically appropriate.
Echo: 01/28/23- . Left ventricle: Normal size and systolic function with an estimated ejection fraction of 55 to 60% by volumetric assessment. Stage III diastolic dysfunction is present
2. Right ventricle: Normal
3. Atria: Normal
4. Mitral valve: Trace mitral regurgitation
5. Aortic valve: Trileaflet. No aortic stenosis or aortic insufficiency
6. Tricuspid valve: Mild tricuspid regurgitation with estimated pulmonary artery systolic pressures of 19-24 mmHg
7. Pericardium: A small pericardial effusion is noted
8. When compared to the most recent echocardiogram 01/01/2016 there has been no significant change. A small pericardial effusion was noted on both studies.
PFT's:
Reports and relevant images were personally reviewed.
Critical Care time 50 mins -- The patient is admitted for acute critical illness for the treatment of vital organ failure and/or prevention of further life-threatening conditions. Total care includes time spent in review of history, physical exam,
medications, hemodynamic/ventilator parameters, laboratory data, imaging and discussion with house staff, pharmacy, respiratory therapy, service consultant, and nursing.
[2024-10-29] MEDS: PROCARDIA XL (EXTENDED RELEASE) 60 MG PO ×2 (08:20→20:18)
[2024-10-29] MEDS: APRESOLINE 25 MG PO ×3 (08:20→22:00)
--- NOTE | 2024-10-29 08:20 | PTCARENOTE ---
Received pt asleep, easily awakened to verbal stimuli. Daughter is present in the room to assist with and translation needs. Pt understands most Yi. She is c/o headache. NTG @ 20mcg/min. SBP 150. She was informed of the plan of care regarding
HD and the plan to taper off NTG if possible once AM meds are administered. She verbalized her understanding. Lungs CTA, good peripheral pulses, No edema. Fair appetite. Safe environment maintained.
[2024-10-29] MEDS: COREG 25 MG PO ×2 (08:21→17:41)
[2024-10-29] MEDS: PROGRAF 1 MG PO ×2 (08:21→20:18)
[2024-10-29] MEDS: ROCALTROL 0.25 MCG PO (08:22)
[2024-10-29] MEDS: TYLENOL 1000 MG PO (08:25)
[2024-10-29] MEDS: NOVOLOG FLEXPEN-LOW RESISTANCE SC ×2 (09:36→16:39)
[2024-10-29] MEDS: RENVELA 2400 MG PO ×2 (09:39→18:39)
[2024-10-29] MEDS: PEPCID 20 MG PO (09:39)
[2024-10-29 09:46] LABS: Glucose - Point of Care 106 mg/dl (70-99)
--- NOTE | 2024-10-29 11:25 | W.CON.NEPH ---
Consultation
-
Date/Time Consultation Requested: 10/29/2024 2 AM
Date/Time Consultation Performed: 10/29/2024 at 10 AM
Requesting Provider: Sue Barnes
Performing Provider: Dr. Flood
Reason for Consultation: ESRD
Medical History
-
Chief Complaint: CP with high BPs
History of Present Illness:
This is a 52-year-old female who has history of ESRD, failed kidney transplant in 2019, prior history of ESRD from hypertension and diabetes, was on PD for two years switched HD in Feb 2023 at [facility] through tunneled HD catheter at
[facility] and remains still on low dose of Prograf, insulin-dependent diabetes mellitus, secondary hyperparathyroidism on calcitriol, hypertension , Afib on coumadin, hr hyperkalemia on Lokelma who was brought into the hospital today hypertension
with high SBP 200
She has been having issues with blood pressure over the last few weeks to months with a admission in August for similar presentation.
Renal consultation for end-stage renal disease.
Past Medical History
ESRD with Failed Kidney Transplant on Hemodialysis
Hyperphosphatemia
Essential Hypertension on multiple meds
Hyperlipidemia
Insulin-Dependent Diabetes Mellitus
Paroxysmal Atrial Fibrillation
GERD
right chest wall tunneled HD catheter
Chr hyperkalemia
Past Surgical History: Other (1. Kidney transplant and placement of dialysis catheter. 2. 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 PD catheter)
Social History
Tobacco: Non-Smoker
Alcohol: None
Living: With Family
Family History
No history of kidney disease in the family.
Allergies / Home Medications
Allergy/AdvReac Type Severity Reaction Status Date / Time
No Known Allergies Allergy Verified 09/18/24 18:47
�Medication �Instructions �Recorded �Confirmed �Type
nifedipine 60 mg tablet,extended 60 mg PO BID Blood Pressure 07/22/19 10/29/24 History
release
tacrolimus 1 mg capsule, 1 mg PO BID Transplant 07/22/19 10/29/24 History
immediate-release
simvastatin 10 mg tablet 10 mg PO HS High Cholesterol 07/24/21 10/29/24 History
calcitriol 0.25 mcg capsule 0.5 mcg PO MOWEFR Kidney Disease 10/03/22 10/29/24 History
carvedilol 25 mg tablet 25 mg PO DAILY Heart Failure 12/22/23 10/29/24 History
famotidine 20 mg tablet 20 mg PO DAILY Gastrointestinal 12/22/23 10/29/24 History
Issue
hydralazine 25 mg tablet 50 mg PO TID Blood Pressure 12/22/23 10/29/24 History
insulin glargine 100 unit/mL (3 10 unit SC HS Diabetes 12/22/23 10/29/24 History
mL) subcutaneous pen (Basaglar
KwikPen U-100 Insulin)
losartan 100 mg tablet 100 mg PO HS Blood Pressure 12/22/23 10/29/24 History
sevelamer carbonate 800 mg tablet 1,600 mg PO BID Kidney Disease 12/22/23 10/29/24 History
sevelamer carbonate 800 mg tablet 800 mg PO AC Kidney Disease 12/22/23 10/29/24 History
sodium zirconium cyclosilicate 10 10 g PO TUTHSA Kidney Disease 12/22/23 10/29/24 History
gram oral powder packet (Lokelma)
warfarin 2.5 mg tablet 5 mg PO DAILY Blood Clot 12/22/23 10/29/24 History
Prevention/Tx
carvedilol 25 mg tablet 37.5 mg PO QPM Heart Failure 10/29/24 10/29/24 History
hydroxyzine HCl 25 mg tablet 25 mg PO PRN PRN SLEEP 10/29/24 10/29/24 History
insulin aspart 2 unit SC AC Diabetes 10/29/24 10/29/24 History
(niacinamide)(U-100) 100 unit/mL(3
mL) subcutaneous pen (Fiasp
FlexTouch U-100 Insulin)
Review of Systems
-
Headache no chest pain or shortness of breath
All other systems: Negative unless noted
Physical Exam
Vital Signs
Vital Signs
Temp Pulse Resp BP Pulse Ox
98.3 F 72 22 111/61 94
10/29/24 07:00 10/29/24 10:00 10/29/24 10:00 10/29/24 10:00 10/29/24 10:00
Lab Results
WBC 4.4 10^3/uL (4.8-10.8) L 10/29/24 04:49
RBC 3.72 10^6/uL (4.20-5.40) L 10/29/24 04:49
Hgb 9.9 g/dL (12.0-16.0) L 10/29/24 04:49
Hct 30.2 % (37.0-47.0) L 10/29/24 04:49
Plt Count 93 10^3/uL (130-400) L 10/29/24 04:49
Sodium 138 mmol/L (135-145) 10/29/24 04:49
Potassium 3.7 mmol/L (3.5-5.1) 10/29/24 04:49
Chloride 102 mmol/L (98-107) 10/29/24 04:49
Carbon Dioxide 26 mmol/L (22-30) 10/29/24 04:49
BUN 36 mg/dl (7-17) H 10/29/24 04:49
Creatinine 7.3 mg/dL (0.6-1.0) H* 10/29/24 04:49
eGFR 6.24 10/29/24 04:49
Glucose 86 mg/dl (70-99) 10/29/24 04:49
Calcium 9.8 mg/dl (8.4-10.2) 10/29/24 04:49
Phosphorus 4.1 mg/dl (2.5-4.5) 10/29/24 00:44
Albumin 4.9 g/dl (3.5-5.0) 10/29/24 00:44
Physical Exam
General no acute distress
HEENT no cephalic atraumatic extraocular muscle intact no scleral icterus no JVD neck supple
lungs clear to auscultation bilateral
heart regular S1-S2 positive
abdomen soft nontender positive bowel sounds
extremities no edema pulses present bilateral
Neurologically nonfocal alert and oriented x 3
Skin no lesions no abrasions no petechiae
Psych normal affect no bizarre behavior
Data Reviewed
-
Radiology: Image Personally Visualized and interpreted
CT Scan: Image Personally Visualized and interpreted
MRI: Image Personally Visualized and interpreted
Labs: Labs Reviewed by me, Discussed with Physician, Discussed with Nurse, Discussed with Patient and Discussed with Family
Assessment/Plan
-
IMP:
Uncontrolled Hypertension
ESRD with Failed Kidney Transplant on Hemodialysis MWF at [facility]
Essential Hypertension on multiple meds
Hyperlipidemia
Insulin-Dependent Diabetes Mellitus
Paroxysmal Atrial Fibrillation
GERD
right chest wall tunneled HD catheter
Hyperphosphatemia
SHPTH
Chr hyperkalemia on [facility]
h/o Pericarditis
Plan:
No evidence of volume overload
Blood pressure improved on nitro
Has not missed dialysis with last treatment on Friday
Her estimated dry weight is 57 kg
Her daughter had reports of a recent MRI with contrast that showed no evidence of renal artery stenosis as well as echocardiogram done at [place] showed a normal ejection fraction no evidence of diastolic dysfunction.
d/w pt and daughter at bedside
Hemodialysis ordered for today

33 minutes critical care time
[2024-10-29 11:27] LABS: Glucose - Point of Care 151 mg/dl (70-99)
[2024-10-29] MEDS: NOVOLOG FLEXPEN-LOW RESISTANCE 1 UNITS SC (11:56)
--- NOTE | 2024-10-29 12:06 | PTCARENOTE ---
BP WNL since NTG turned off. Complete resolution of her headache. No changes in her assessment otherwise.
[2024-10-29] MEDS: RENVELA 800 MG PO (12:40)
--- NOTE | 2024-10-29 12:43 | W.PN.HOSP.TC ---
Today's Communication/Plan
-
Wean off nitro drip
Hemodialysis
Monitor blood pressure closely
May need medication adjustment
Nephrology following
Hold Coumadin
Assessment / Plan
Assessment / Plan
General: Comfortable and Conversant
HEENT: Anicteric and Moist mucous membranes
Respiratory: Clear and Non Labored Respirations
Cardiac: S1/S2 and Regular Rhythm
GI: Soft and Non Tender
Rectal: Deferred by Provider
Musculoskeletal: No Clubbing, No Cyanosis and No Edema
Skin: Warm and Dry
Neuro: Awake, Alert, Oriented and Nonfocal/grossly intact
Psych: Calm
IMPRESSION:
54-year-old with history of hypertensive urgency, end-stage renal disease on hemodialysis, insulin-dependent diabetes, history of failed kidney transplant, chronic blood clots on chronic anticoagulation presenting to the emergency department with
headache chest discomfort and elevated blood pressure with a troponin of 0.02. Blood pressure was elevated at 220 systolic. Patient is otherwise hemodynamically stable and not requiring supplemental oxygen without any evidence of overt volume
overload. Suspect dietary noncompliance versus elevated target weight resulting in recurrent hypertensive episodes. Outpatient physicians are titrating the medications for blood pressure control. ECG is nonischemic. Due to complaints of
persistent headache and bilateral numbness weakness and pain cannot rule out dissection.
PLAN:
Hypertensive urgency
- Off nitro drip
- CT negative for dissection
- Continue home antihypertensives including hydralazine, Coreg, losartan and nifedipine. Probably will need adjustment of medication dosing
- Troponin negative. Chest pain-free. Blood pressure down trended.
ESRD with Failed Kidney Transplant on HD MoWe
- Consult nephrology for Friday HD
- Continue calcitriol\\sevelamer
- Continue home Lokelma home therapy
- Hold tenapanor given complaint of diarrhea
- Continue tacrolimus 1 twice daily
Diarrhea -no further episodes while in ED
- Monitor bowel movements for now
- Hold tenapanor
Insulin-Dependent Diabetes Mellitus
Continue with basal bolus regimen. Monitor POC.
Paroxysmal Atrial Fibrillation
Chronic coagulopathy with Coumadin
Supratherapeutic INR
- On chronic warfarin, INR 6.6, holding coumadin and repeat INR
-Monitor heart rate
Mild pancytopenia
-Monitor for now. No acute need for blood or platelet transfusion.
- Monitor for luminal bleeding.
DVT prophylaxis�on warfarin
CODE STATUS�full code
Discussed with patient daughter at bedside in detail.
Anticipated Discharge: 24 - 48 hours
Subjective/Interval History
-
Date of Service: October 29, 2024
Denies any chest pain
Was seen earlier this morning and patient was on 10 of
Objective Data
-
Labs:
Laboratory Results
10/29/24 10/29/24 10/29/24
00:44 04:49 04:49
WBC 4.5 L 4.4 L
Hgb 10.5 L 9.9 L
Hct 32.4 L 30.2 L
Plt Count 105 L 93 L
PT Cancelled 56.9 H
INR Cancelled
APTT
Sodium 142
Potassium 3.6
Chloride 100
Carbon Dioxide 27
BUN 31 H
Creatinine 7.2 H*
Glucose 105 H
Calcium 10.0
Total Bilirubin 0.9
AST 30
ALT 21
Alkaline Phosphatase 157 H
10/29/24 10/29/24
04:49 09:58
WBC
Hgb
Hct
Plt Count
PT Pending
INR 6.69 H* Pending
APTT 53.0 H
Sodium 138
Potassium 3.7
Chloride 102
Carbon Dioxide 26
BUN 36 H
Creatinine 7.3 H*
Glucose 86
Calcium 9.8
Total Bilirubin
AST
ALT
Alkaline Phosphatase
Vital Signs:
Vital Signs
Temp Pulse Resp BP Pulse Ox
98.1 F 68 15 130/63 94
10/29/24 11:00 10/29/24 11:45 10/29/24 11:45 10/29/24 11:30 10/29/24 11:45
I&O
10/28/24 10/29/24 10/30/24
06:59 06:59 06:59
Intake Total 849 / 849
Balance 849 / 849
Data Reviewed
-
Total Time Spent with Patient (in minutes): 55
--- NOTE | 2024-10-29 12:48 | CM ---
Initial assessment completed with daughter with patient in bed. Patient lives with her daughter and son in a 2nd floor apartment with 10 steps to enter. [employer] patient was independent in ambulation and ADL's, drove. No DME or in-home skilled
services. Patient's daughter is a paid caregiver through [employer] for 8 hour shifts 7 days a week. Patient is on HD at [facility] in [place]. Chair time is 10 AM on . She was on peritoneal dialysis for 2-3 years and then transitioned
to HD approximately 2 years ago. No HC-POA. PCP is Dr. Richard Sweet. Pharmacy is [facility] in [place]. Discharge POC: Home with no needs.
[2024-10-29 14:47] LABS: PT 56.8 Sec (11.4-14.6)
[2024-10-29 14:50] LABS: INR 6.66
[2024-10-29 15:10] LABS: Troponin I 0.018 ng/ml
[2024-10-29 16:48] LABS: Glucose - Point of Care 138 mg/dl (70-99)
[2024-10-29] MEDS: RETACRIT 4000 UNITS IV (18:18)
[2024-10-29] MEDS: COREG 12.5 MG PO (18:39)
[2024-10-29] MEDS: ATARAX 25 MG PO (22:00)
[2024-10-29] MEDS: LANTUS 0.08 UNITS SC (22:01)
[2024-10-29] MEDS: COZAAR 100 MG PO (22:01)
[2024-10-29] MEDS: LIPITOR 10 MG PO (22:01)
[2024-10-29 22:08] LABS: Glucose - Point of Care 143 mg/dl (70-99)
--- NOTE | 2024-10-29 22:30 | PTCARENOTE ---
Pt expressing desire to leave AMA. Brittny BELL notified. BULK MAIL TECHNICIAN spoke w/ patient regarding concerns w/ leaving AMA. After conversation pt ultimately made decision to leave AMA. IV access removed by this RN. Pt left w/ personal belongings,
accompanied w/ daughter.
--- NOTE | 2024-10-30 00:12 | W.PN.UPDATE ---
Update Note
Progress Note Update
Pt wishes to leave AMA. Explained risks of leaving AMA to patient and daughter Clara at the bedside, both verbalized understanding. AMA form signed by patient.
--- NOTE | 2024-10-30 07:59 | W.DCSUMMARY ---
Discharge Summary
Discharge Data
Date of Admission: 10/29/24
Date of Discharge: 10/30/24
-
Pending Results: No
Hospital Course
53-year-old female past medical history of ESRD status post failed kidney transplant now on hemodialysis, primary hypertension, insulin-dependent diabetes mellitus, atrial fibrillation, chronic coagulopathy with Coumadin who was presented with chest
pain and was found to have a hypertension urgency. Patient with significant elevated blood pressure on admission. Patient underwent CT chest on admission was negative for dissection or pulmonary embolism. Patient was started on nitroglycerin drip
and admitted to medical ICU. Patient blood pressure down trended. Patient was restarted on home medication regimen. Patient was weaned off nitroglycerin and blood pressure remained stable on home regimen of blood pressure meds. Patient closely
follows up with his concession stand attendant at [place]. Patient underwent hemodialysis. Patient also with supratherapeutic INR on admission. Patient follows INR closely with her quality assurance intern. Patient decided to leave AGAINST MEDICAL ADVICE on 11/22 at
0012.
Discharge Plan
-
Patient Disposition: Against Medical Advice
Discharge Diagnosis/Procedures: Hypertensive Urgency
Referrals:
Richard Sweet MD [Family Provider, Internal Medicine]
Prescriptions:
No Action
nifedipine 60 MG tablet extended release
60 mg PO BID
tacrolimus 1 MG capsule
1 mg PO BID
Rx Instructions:
per pharmacy fill - patient should be taking 3 mg BID, patients daughter states she is taking 1 mg BID
simvastatin 10 MG tablet
10 mg PO HS
calcitriol 0.25 mcg Capsule
0.5 mcg PO MOWEFR
carvedilol 25 mg Tablet
25 mg PO DAILY
warfarin 2.5 mg Tablet
5 mg PO DAILY
Rx Instructions:
2.5 mg tabs (2 tabs) or as directed by doctor
hydralazine 25 mg Tablet
50 mg PO TID
famotidine 20 mg Tablet
20 mg PO DAILY
losartan 100 mg Tablet
100 mg PO HS
sevelamer carbonate 800 mg Tablet
1,600 mg PO BID
Rx Instructions:
take with snacks
sevelamer carbonate 800 mg Tablet
800 mg PO AC
Rx Instructions:
take with meals
Lokelma 10 gram Powder In Packet
10 g PO TUTHSA
insulin glargine [Basaglar KwikPen U-100 Insulin] 300 UNITS/3 ML insulin pen
10 unit SC HS
Rx Instructions:
sliding scale
carvedilol 25 mg tablet
37.5 mg PO QPM
Rx Instructions:
Patient said she takes carvedilol 25 mg the moring and 37.5 mg in the evening.
Pharmacy states she is to take carvedilol 25 mg BID
hydroxyzine HCl 25 mg tablet
25 mg PO PRN PRN (Reason: SLEEP)
Fiasp FlexTouch U-100 Insulin 100 unit/mL (3 mL) insulin pen
2 unit SC AC
Discharge Date and Time
Discharge Date/Time: 10/29/24 22:30
Print Language: PERSIAN
--- NOTE | 2024-11-01 09:11 | CM ---
Patient left [facility] on 10/30/24 @ 0012.
== END 2024-10-29 22:30 | disposition left against medical advice (07) | DRG 304 ==
LOC: ICU 03:09
PROVIDERS: Nurse Practitioner Primary Care; ADMITTING PHYSICIAN Internal Medicine; ATTENDING PHYSICIAN Hospitalist; CONSULT PHYSICIAN Internal Medicine; CONSULT PHYSICIAN Internal Medicine Nephrology; EMERGENCY PHYSICIAN Emergency Medicine; FAMILY PHYSICIAN Internal Medicine
DX: I16.1 Hypertensive emergency (principal); N18.6 End stage renal disease; D68.9 Coagulation defect, unspecified; I48.20 Chronic atrial fibrillation, unspecified; T86.12 Kidney transplant failure; D61.818 Other pancytopenia; N25.81 Secondary hyperparathyroidism of renal origin; Z53.29 Procedure and treatment not carried out because of patient's decision for other reasons; Z79.01 Long term (current) use of anticoagulants; E11.22 Type 2 diabetes mellitus with diabetic chronic kidney disease; Z99.2 Dependence on renal dialysis; Y83.0 Surgical operation with transplant of whole organ as the cause of abnormal reaction of the patient, or of later complication, without mention of misadventure at the time of the procedure; E78.00 Pure hypercholesterolemia, unspecified; E83.39 Other disorders of phosphorus metabolism; E87.5 Hyperkalemia; I13.2 Hypertensive heart and chronic kidney disease with heart failure and with stage 5 chronic kidney disease, or end stage renal disease; I48.0 Paroxysmal atrial fibrillation; K21.9 Gastro-esophageal reflux disease without esophagitis; Z79.4 Long term (current) use of insulin; Z79.899 Other long term (current) drug therapy; Z87.440 Personal history of urinary (tract) infections
CPT/HCPCS: 70450; 71045; 71275; 80048; 80053; 82962; 83735; 84100; 84443; 84484; 85027; 85610; 85730; 87070; 93005; 96365; 96366; 96375; 99285; G0257; Q5106; Q9967